=== PATIENT | male | born 1975 | race Caucasian/White ===

== ENCOUNTER → 2017-08-24 10:23 | Outpatient (CLI) | payer BC, OTHER, SELFPAY ==
[2017-08-24 13:23] LABS: Alanine Aminotransferase 110 U/L (12-78); Albumin Level 3.9 gm/dL (3.4-5.0); Albumin/Globulin Ratio 1.3 (1.1-1.8); Alkaline Phosphatase 86 U/L (46-116); Anion Gap 9.6 mEq/L (5-15); Aspartate Amino Transferase 114 U/L (15-37); Bilirubin,Total 0.3 mg/dL (0.2-1.0); Blood Urea Nitrogen 14 mg/dL (7-18); Calcium 9.3 mg/dL (8.5-10.1); Carbon Dioxide 31 mmol/L (21.0-32.0); Chloride 105 mmol/L (98-107); Chol/HDL Ratio 4.3 (1-3.5); Cholesterol 163 mg/dL (140-200); Creatinine,Serum 0.97 mg/dL (0.70-1.30); Estimated Glomerular Filt Rate 84 ml/min (>60); GFR (African American) 102 ML/MIN (>60); Globulin 3.1 gm/dl (1.3-3.2); Glucose 90 mg/dL (74-106); HDL Cholesterol 38 mg/dL (27-67); LDL Cholesterol 91 mg/dL (0-130); Potassium 4.6 mmoL/L (3.5-5.1); Sodium 141 mmol/L (136-145); Triglycerides 171 mg/dL (30-200); VLDL Cholesterol 34 mg/dL (0-40)
[2017-08-26 18:18] LABS: Vitamin D 25 Hydroxy 28.5 ng/mL (30.0-100.0)
== END ==
PROVIDERS: PCP Internal Medicine Adolescent Medicine; Visit Provider Nurse Practitioner Family
DX: E03.9 Hypothyroidism, unspecified (principal); E55.9 Vitamin D deficiency, unspecified; Z00.00 Encounter for general adult medical examination without abnormal findings
CPT/HCPCS: 36415; 80053; 80061; 82652; 84443

== ENCOUNTER → 2021-03-06 08:08 | Outpatient (CLI) | payer BC, SELFPAY ==
--- NOTE | 2021-03-06 08:18 | MR_ITS ---
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 3-D MIP and myelographic images are also rendered and reviewed FINDINGS: Normal alignment. The spinal cord ends at the T12-L1 level. L1-L2: Unremarkable. L2-L3: Unremarkable. L3-L4: Mild degenerative disc disease with bulging disc with facet and ligamentum hypertrophy with mild bilateral lateral recess narrowing and mild bilateral foraminal narrowing slightly worse compared to the previous exam.. This is slightly greater on right. Type 2 endplate changes are present with Schmorl's node in the inferior endplate of L3. Increased T1 and T2 signal involves the anterior aspect of the L3 vertebral body on the right consistent with a lipoma which is increased in size. This measures 12 mm previously measuring 10 mm. Small annular fissure is present within the bulging disc. The bulging disc is slightly larger compared to the previous exam. L4-5: Minimal bulging disc with small annular fissure. There is facet and ligamentum hypertrophy with bilateral lateral recess narrowing not significantly changed. Borderline canal stenosis. L5-S1: Small central disc protrusion with annular fissure best seen on the sagittal images. This is slightly eccentric toward the left with left lateral recess narrowing. There is facet hypertrophy with mild left foraminal narrowing. The disc protrusion appears slightly less prominent compared to the previous exam.. No extruded herniated disc. IMPRESSION: Abnormal MRI of the lumbar spine with multilevel lumbar spondylosis with degenerative disc disease, bulging discs, annular fissures,, and facet and ligamentum hypertrophy. Please see above for detailed description at each level. Dictated by: Elvin Taylor MD 03/07/2021 06:08 Elvin Taylor MD in [place] 03/07/2021 06:08
== END ==
PROVIDERS: PCP Family Medicine; Visit Provider Family Medicine
DX: M54.42 Lumbago with sciatica, left side (principal); M54.41 Lumbago with sciatica, right side; M51.36 Other intervertebral disc degeneration, lumbar region
CPT/HCPCS: 72148; 76376

== ENCOUNTER → 2021-04-04 09:51 | Outpatient (POV) | payer BC, SELFPAY ==
[2021-04-04 10:36] VITALS: BP 142/90; PULSE 77; RESP 18; O2SAT 98; BMI 34.8
--- NOTE | 2021-04-04 10:51 | HMH.PMCON ---
Assessment and Plan (1) Degenerative joint disease (DJD) of lumbar spine Status: Chronic Category: Medical Code(s): M47.816 - Spondylosis without myelopathy or radiculopathy, lumbar region (2) Lumbar radiculopathy Status: Chronic Category: Medical Code(s): M54.16 - Radiculopathy, lumbar region (3) Lumbar spondylosis Status: Chronic Category: Medical Code(s): M47.816 - Spondylosis without myelopathy or radiculopathy, lumbar region (4) Facet arthropathy Status: Chronic Category: Medical Code(s): M47.819 - Spondylosis without myelopathy or radiculopathy, site unspecified - Assessment and plan all Dx Assessment and Plan for all problems:: The patient is currently on Cymbalta prescribed by Dr. Jackson. He has tried gabapentin with no relief. We will start the patient on Lyrica 75 mg 1 tablet p.o. twice daily. He has been advised to take the medication for the next 3 to 5 days at bedtime only. If he is not experiencing any side effects he can add the morning dose on as well. Patient is having urinary incontinence with his back pain as well as paresthesia in his groin area intermittently.. We will schedule the patient for a referral back to Dr. De La Rosa. He has seen him in the past. As well, we will schedule the patient for lumbar epidural steroid injection at L3-L4 area. Per the patient's MRI report? L3-L4 with degenerative disc disease, bulging disc, facet and ligamentum hypertrophy with mild bilateral lateral recess narrowing slightly worse from previous exam. Report also notes the patient to have lipoma which has increased in size from 10 mm to 12 mm. Small annular fissure is also noted within the bulging disc . Patient is not on any anticoagulation therapy. We will plan to see him back after his injection for reevaluation of symptoms. Risks and benefits of the medication have been explained in detail to the patient. The patient has been advised to consult with his/her primary care provider and pharmacist regarding drug-drug interaction of medications currently prescribed. Possible side effects of corticosteroids have been discussed with the patient. Risks and benefits of the procedure have been explained to the patient. Patient would like to proceed with the procedure. Patient has been instructed to contact the clinic with any concerns before the next appointment. Dr. Abad has reviewed this note and agrees with this plan of care. This note was dictated using voice recognition software and make contain errors or omissions. HPI - Data of Consult Patient: new to practice Consult date: 04/04/21 Requesting Physician: Nasima Heredia APRN - Consult Narrative Reason for consult: Low back pain, bilateral leg pain History of present illness: Mr. Garrison is a 46 year old male who presents today for consultation for chronic low back and bilateral lower extremity pain. The patient was referred to us by Dr. Jackson. Patient says that he has had low back pain intermittently for the past 10 years. The pain has progressively worsened over the last year. He has seen neurosurgery?Dr. De La Rosa in the past approximately 5 years ago. The patient has pain in his bilateral low back area, bilateral groin and bilateral legs. He says the pain is usually worse in the right lower extremity with numbness and tingling, however, he is now noticing the same symptoms in the left leg. He says that he occasionally feels as though his legs are going to give out . He has taken corticosteroid Dosepak which is given him short-term relief. Unfortunately, the pain returned. He does have worsening pain with standing and walking. Patient says when his back is giving out he has had periods of urinary incontinence. He does deny bowel incontinence. The patient has tried anti-inflammatories and gabapentin with minimal relief. He is currently on Cymbalta which he says does help somewhat. He does continue to have significant numbness and tingling
== END ==
PROVIDERS: Visit Provider Clinical Nurse Specialist Family Health
DX: M47.896 Other spondylosis, lumbar region (principal); M54.16 Radiculopathy, lumbar region
CPT/HCPCS: 99202; G0463

== ENCOUNTER 2021-04-12 09:44 | Day surgery (SDC) | payer BC, SELFPAY ==
[2021-04-12 10:16] VITALS: BP 145/92; PULSE 75; RESP 18; TEMP 37; O2SAT 97; BMI 34.8
[2021-04-12 10:38] VITALS: BP 154/90; PULSE 79; RESP 18; O2SAT 95
[2021-04-12 10:39] VITALS: BP 142/80; PULSE 76; RESP 18; O2SAT 95
--- NOTE | 2021-04-12 10:45 | HMH.PMPROC ---
- Procedure Date: 04/12/21 Time: 10:45 Anesthesiologist:: Rolando Abad MD Complications:: None Pre-procedure Diagnosis:: Degenerative disc disease of lumbar spine with lumbar radiculopathy symptoms Post-procedure Diagnosis:: Same Indications for Procedure:: Patient is a pleasant 46-year-old white male who we are treating for low back pain with lumbar radiculopathy symptoms. He has some increasing pain in his back and down his legs. He has had neurosurgical consultation and he is not a surgical candidate. We will plan on a lumbar epidural steroid injection under fluoroscopy today. Procedure Details:: Informed consent was obtained and the risk and benefits of the procedure was explained to the patient. The patient was taken to the procedure room. The patient was placed prone on the procedure table. The patient was prepped and draped in sterile fashion. C-arm fluoroscopy was used to view the lumbar spine. Skin and subcutaneous tissues were anesthetized using lidocaine. I placed an 18-gauge epidural needle and advanced into the L4-L5 interspace using fluoroscopic guidance and [id number] to air. After confirmation of needle placement in the epidural space with dye I injected 2 mL of lidocaine 1.5% with Depo-Medrol 80 mg. Patient tolerated the procedure well with no complications. Plan and Disposition:: We will follow-up with him in 2 weeks. Will reevaluate symptoms at that time.
[2021-04-12 10:51] VITALS: BP 140/94; PULSE 78; RESP 20; O2SAT 96
== END 2021-04-12 10:52 | disposition home or self-care (01) ==
LOC: SC.PAINP 09:45
PROVIDERS: PCP Family Medicine; Visit Provider Anesthesiology
DX: M51.16 Intervertebral disc disorders with radiculopathy, lumbar region (principal)
CPT/HCPCS: 62323; J1040; Q9966

== ENCOUNTER → 2021-05-02 15:08 | Outpatient (POV) | payer BC, SELFPAY ==
[2021-05-02 15:12] VITALS: BP 124/76; PULSE 67; RESP 18; O2SAT 98; BMI 34.8
--- NOTE | 2021-05-02 15:24 | HMH.PAINSOAP ---
[facility] Pain Management SOAP Note Subjective:: Patient is a 46-year-old who presents today for follow-up after a lumbar epidural steroid injection, # patient reports that he got 70 to 80% relief with the injection. He says that he got relief 1 injection at L4-L5 area. To his low back and lower extremities. He is continuing to have right foot numbness. He says that he he has numbness to the heel of his sole of his foot. He is scheduled to see a neurosurgeon at [facility] on June 10. Patient does work at [employer]. He is currently on Lyrica 75 mg 1 tablet p.o. twice daily which is giving him some relief but the medication is wearing off between dosing. He denies any side effects to the medicine. He does rate his pain a 4 out of 10 today. [facility] #[id number] has been reviewed and is appropriate. Judgment have been appropriate. Morphine equivalent is 0. Patient feels that the injection worked very well for him. He does continue with home stretching and ice and heat therapies as needed. Review of Systems General: No recent weight changes, no fever, no sleep disturbances Respiratory: No cough, no shortness of air, no recurring pulmonary infections Cardiovascular/peripheral vascular: No chest pain, no palpitations, no edema, no shortness of breath Gastrointestinal: No new onset incontinence, normal bowel movements reported Genitourinary: No new onset incontinence Musculoskeletal: Low back pain with numbness and tingling to soles of feet Psychiatric: [Normal mood/affect] Neurological: [Denies weakness in extremities], [denies balance issues] Objective:: Physical exam General: Alert and oriented x3, no acute distress, pleasant and cooperative Lungs: Respirations even and unlabored, symmetrical chest expansion Eyes: PERRL Musculoskeletal: Flexion and extension of lumbar [spine] somewhat guarded secondary to pain, [antalgic gait noted] Neurological: Speech clear, no gross sensory deficit Assessment:: Degenerative disc disease lumbar spine with lumbar radiculopathy symptoms Plan:: Patient is a 46-year-old male following up after a lumbar epidural steroid injection L4-L5, #1 injection. He got significant relief with the injection, 70 to 80%. He is continuing to get relief. He is continuing, however, have numbness to the sole of his feet. He is on Lyrica 75 mg 1 tablet p.o. twice daily. This medicine is giving him significant relief, but is wearing off quickly. We will increase the patient's medicine to 75 mg 1 tablet p.o. 3 times daily. Patient would like to proceed with a repeat injection at the area L4-L5. His pain is slowly returning. The patient is not on any anticoagulation therapy. This will be his #2 injection. The patient is not diabetic. Possible side effects of corticosteroids have been discussed with the patient. Risks and benefits of the procedure have been explained to the patient. Patient would like to proceed with the procedure. Patient has been instructed to contact the clinic with any concerns before the next appointment. Dr. Abad has reviewed this note and agrees with this plan of care. This note was dictated using voice recognition software and make contain errors or omissions. [facility] History I have reviewed the patient's past medical history: Yes Medical History: Denies:: Cancer, Diabetes Mellitus Type 1, Diabetes Mellitus Type 2, Internal Pacemaker, MRSA, Seizures *Have you ever received a pneumonia vaccine?: No *Have you received a flu vaccine this season?: No Other Medical History: Denies: Blood Transfusion Reaction Other Surgeries: No: Pacemaker Amputation: No Fractures: No - *Social History Smoking Status: Never smoker Alcohol Intake: never *Occupational Status:: employed Housing: house *Travel in the last 8 weeks: None Family Hx:: No significant family history
== END ==
PROVIDERS: Visit Provider Clinical Nurse Specialist Family Health
DX: M51.16 Intervertebral disc disorders with radiculopathy, lumbar region (principal)
CPT/HCPCS: 99212; G0463

== ENCOUNTER 2021-05-31 07:48 | Day surgery (SDC) | payer BC, SELFPAY ==
[2021-05-31 07:55] VITALS: BP 143/96; PULSE 68; RESP 20; TEMP 36.3; O2SAT 98; BMI 34.8
[2021-05-31 08:53] VITALS: BP 175/90; PULSE 69; RESP 18; O2SAT 95
[2021-05-31 08:56] VITALS: PULSE 69; RESP 18; O2SAT 96
[2021-05-31 09:10] VITALS: BP 144/93; PULSE 65; RESP 20; O2SAT 96
--- NOTE | 2021-05-31 10:07 | HMH.PMPROC ---
- Procedure Date: 05/31/21 Time: 10:07 Anesthesiologist:: Rolando Abad MD Complications:: None Pre-procedure Diagnosis:: Degenerative disc disease of lumbar spine with lumbar radiculopathy symptoms Post-procedure Diagnosis:: Same Indications for Procedure:: Patient is a pleasant 46-year-old white male who we are treating for low back pain with lumbar radiculopathy symptoms. He was 70 to 80% better after his last lumbar epidural steroid injection. He is scheduled to see [facility] neurosurgery later on this month. We will plan on a repeat lumbar pleural steroid injection today to see if this helps with his pain symptoms. Procedure Details:: Informed consent was obtained and the risk and benefits of the procedure was explained to the patient. The patient was taken to the procedure room. The patient was placed prone on the procedure table. The patient was prepped and draped in sterile fashion. C-arm fluoroscopy was used to view the lumbar spine. Skin and subcutaneous tissues were anesthetized using lidocaine. I placed an 18-gauge epidural needle and advanced into the L4-L5 interspace using fluoroscopic guidance and [id number] to air. After confirmation of needle placement in the epidural space with dye I injected 2 mL of lidocaine 1.5% with Depo-Medrol 80 mg. Patient tolerated the procedure well with no complications. Plan and Disposition:: We will follow-up with him in 2 weeks. This will be after his appoint with neurosurgery. We will discuss plan of treatment after this appointment.
== END 2021-05-31 09:10 | disposition home or self-care (01) ==
LOC: SC.PAINP 07:49
PROVIDERS: PCP Family Medicine; Visit Provider Anesthesiology
DX: M51.16 Intervertebral disc disorders with radiculopathy, lumbar region (principal); M19.90 Unspecified osteoarthritis, unspecified site; E03.9 Hypothyroidism, unspecified
CPT/HCPCS: 62323; J1040; Q9966

== ENCOUNTER → 2021-06-20 10:14 | Outpatient (POV) | payer BC, SELFPAY ==
[2021-06-20 10:59] VITALS: BP 140/62; PULSE 64; RESP 18; O2SAT 95; BMI 34.8
--- NOTE | 2021-06-20 11:06 | HMH.PAINSOAP ---
[facility] Pain Management SOAP Note Subjective:: Patient is a 46-year-old white male who presents today for follow-up after lumbar epidural steroid injection. He recently saw [facility] neurosurgery and was informed that he is not likely a neurosurgical candidate. This is the patient's second lumbar epidural steroid injection. He says he got 70 to 80% relief. He does still have some occasional pain in his lower extremities. He is currently on Lyrica 75 mg 1 tablet p.o. 3 times daily. He is having significant muscle cramps in his bilateral lower extremities. Lyrica has helped with this, but he would like to increase his dosing. He says that the pain in his lower extremities does wake him at bedtime and throughout the day causes him significant pain. Today, he rates his pain a 6 out of 10 Objective:: Physical exam General: Alert and oriented x3, no acute distress, pleasant and cooperative Lungs: Respirations even and unlabored, symmetrical chest expansion Eyes: PERRL Musculoskeletal: Flexion and extension of lumbar [spine] somewhat guarded secondary to pain, [antalgic gait noted] Neurological: Speech clear, no gross sensory deficit Assessment:: Degenerative disc disease lumbar spine with lumbar radiculopathy symptoms, low back pain Plan:: The patient did get relief from his second lumbar epidural steroid injection. He would like to increase his Lyrica to see if this helps with his lower extremity pain and cramps. We will increase him to Lyrica 100 mg 1 tablet p.o. 3 times daily. He has been taking Lyrica 75 mg 1 tablet p.o. 3 times daily. We will also start him on tramadol 50 mg 1 tablet p.o. 3 times daily to see if this relieves his pain. If it does not, he has been advised to stop the medication. We will follow-up with him in a month to see if the medication has given him any relief. If he does not get relief, Requip may be an option to take prior to bedtime. Risks and benefits of the medication have been explained in detail to the patient. The patient does understand the risk of dependence on the medication when given over a prolonged period. Patient has been advised of risks of oversedation with the prescribed medication. Narcan has been offered to the paitent in the event of oversedation. Patient has been advised that a family member should also be educated regarding administration of Narcan. The patient has been advised to consult with his/her primary care provider and pharmacist regarding drug-drug interaction of medications currently prescribed. Patient has been prescribed a controlled substance after being counseled on the medication, medication safety, and possible side effects. DAVE report has been obtained and reviewed prior to prescription and found to be appropriate. Opioid contract was reviewed and signed by the patient, and that they have agreed to all of the terms set forth by our compliance program. Patient has been instructed to contact the clinic with any concerns before the next appointment. Dr. Abad has reviewed this note and agrees with this plan of care. This note was dictated using voice recognition software and make contain errors or omissions. [facility] History I have reviewed the patient's past medical history: Yes Medical History: Denies:: Cancer, Diabetes Mellitus Type 1, Diabetes Mellitus Type 2, Internal Pacemaker, MRSA, Seizures *Have you ever received a pneumonia vaccine?: No *Have you received a flu vaccine this season?: No Other Medical History: Reports: Arthritis, Hypothyroidism. Denies: Blood Transfusion Reaction Other Surgeries: Yes: No Previous Surgery. No: Pacemaker Amputation: No Fractures: No - *Social History Smoking Status: Never smoker Alcohol Intake: never *Occupational Status:: employed Housing: house Household Members: other *Travel in the last 8 weeks: None Family Hx:: No significant family history
== END ==
PROVIDERS: Visit Provider Clinical Nurse Specialist Family Health
DX: M51.16 Intervertebral disc disorders with radiculopathy, lumbar region (principal)
CPT/HCPCS: 99212; G0463

== ENCOUNTER → 2021-07-22 09:40 | Outpatient (POV) | payer BC, SELFPAY ==
[2021-07-22 09:55] VITALS: BP 151/92; PULSE 72; RESP 18; O2SAT 98; BMI 34.8
--- NOTE | 2021-07-22 10:15 | HMH.PAINSOAP ---
[facility] Pain Management SOAP Note Subjective:: Patient is a pleasant 46 year old male who comes in here for follow-up. Patient is currently being treated for degenerative disc disease of the lumbar spine with lumbar radiculopathy symptoms. Patient states his pain starts in his low back that radiates to bilateral legs with numbness and paresthesia. From his MRI in February 2021, patient has multilevel lumbar spondylosis, degenerative disc disease, bulging discs, annular fissures, and facet and ligamentum hypertrophy. 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 Patient has seen neurosurgery in the past and was told that he is not a surgical candidate. He is currently taking lyrica 100mg three times a day. We started him on tramadol last time, but this did not help the patient. He states that he got more relief from alleve. Patient has also had two lumbar epidural steroid injections in the past which provided him 80-90% relief that lasted for about 1-1.5 months. He rates his pain today as 3/10. His sy is [id number] with a morphine equivalent of 0. Drug screens have been reviewed and appropriate. ORT score is 0, low risk. General: No recent weight changes, no fever, no sleep disturbances Respiratory: No cough, no shortness of air, no recurring pulmonary infections Cardiovascular/peripheral vascular: No chest pain, no palpitations, no edema, no shortness of breath Gastrointestinal: No new onset incontinence, normal bowel movements reported Genitourinary: No new onset incontinence Musculoskeletal: [low back pain] Psychiatric: [Normal mood/affect] Neurological: [Denies weakness in extremities], [denies balance issues] Objective:: General: Alert and oriented x3, no acute distress, pleasant and cooperative, [on room air] Lungs: Respirations even and unlabored, symmetrical chest expansion Eyes: PERRL Musculoskeletal: Flexion and extension of [lumbar] [spine] somewhat guarded secondary to pain Neurological: Speech clear, no gross sensory deficit Assessment:: Degenerative Disc Disease of the Lumbar spine with lumbar radiculopathy Spondylosis Disc Bulging Facet and Ligamentum Hypertrophy Plan:: Ordering Physician: Abiel Jackson MD Date of Service: 03/06/21 Procedure(s): MR lumbar spine wo con Accession Number(s): [id number] cc: Elvin Taylor MD; Abiel Jackson MD~ PROCEDURE: MR LUMBAR SPINE WO CON CLINICAL INDICATION: LBP Low back pain left leg COMPARISON: 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 3-D MIP and myelographic images are also rendered and reviewed FINDINGS: Normal alignment. The spinal cord ends at the T12-L1 level. L1-L2: Unremarkable. L2-L3: Unremarkable. L3-L4: Mild degenerative disc disease with bulging disc with facet and ligamentum hypertrophy with mild bilateral lateral recess narrowing and mild bilateral foraminal narrowing slightly worse compared to the previous exam.. This is slightly greater on right. Type 2 endplate changes are present with Schmorl's node in the inferior endplate of L3. Increased T1 and T2 signal involves the anterior aspect of the L3 vertebral body on the right consistent with a lipoma which is increased in size. This measures 12 mm previously measuring 10 mm. Small annular fissure is present within the bulging disc. The bulging disc is slightly larger compared to the previous exam. L4-5: Minimal bulging disc with small annular fissure. There is facet and ligamentum hypertrophy with bilateral lateral recess narrowing not significantly changed. Borderline canal stenosis. L5-S1: Small central disc protrusion with annular fissure best seen on the sagittal images. This is slightly eccentric toward the left with left lateral recess narrowing. There is facet hypertrophy with mild left foraminal narrowing. The di
--- NOTE | 2021-07-23 08:03 | HMH.PAINSOAP ---
[facility] Pain Management SOAP Note Subjective:: Patient is a pleasant 46 year old male who comes in here for follow-up. Patient is currently being treated for degenerative disc disease of the lumbar spine with lumbar radiculopathy symptoms. Patient states his pain starts in his low back that radiates to bilateral legs with numbness and paresthesia. From his MRI in February 2021, patient has multilevel lumbar spondylosis, degenerative disc disease, bulging discs, annular fissures, and facet and ligamentum hypertrophy. 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 Patient has seen neurosurgery in the past and was told that he is not a surgical candidate. He is currently taking lyrica 100mg three times a day. We started him on tramadol last time, but this did not help the patient. He states that he got more relief from alleve. Patient has also had two lumbar epidural steroid injections in the past which provided him 80-90% relief that lasted for about 1-1.5 months. He rates his pain today as 3/10. His sy is [id number] with a morphine equivalent of 0. Drug screens have been reviewed and appropriate. ORT score is 0, low risk. General: No recent weight changes, no fever, no sleep disturbances Respiratory: No cough, no shortness of air, no recurring pulmonary infections Cardiovascular/peripheral vascular: No chest pain, no palpitations, no edema, no shortness of breath Gastrointestinal: No new onset incontinence, normal bowel movements reported Genitourinary: No new onset incontinence Musculoskeletal: [low back pain] Psychiatric: [Normal mood/affect] Neurological: [Denies weakness in extremities], [denies balance issues] Objective:: Objective:: Physical exam General: Alert and oriented x3, no acute distress, pleasant and cooperative Lungs: Respirations even and unlabored, symmetrical chest expansion Eyes: PERRL Musculoskeletal: Flexion and extension of lumbar [spine] somewhat guarded secondary to pain, [antalgic gait noted] Neurological: Speech clear, no gross sensory deficit Assessment:: Degenerative Disc Disease of the Lumbar spine with lumbar radiculopathy Spondylosis Disc Bulging Facet and Ligamentum Hypertrophy Plan:: Patient has tried and failed conservative therapy such as oral medications, physical therapy, and at home exercises for greater than 6 weeks in the past. Patient has had two lumbar epidural steroid injections that provided 80-90% relief that only lasted for 1-1.5months. Patient is currently not a surgical candidate according the neurosurgery. I discussed with the patient that he is a good candidate for a spinal cord stimulator. Currently, the patient is hesitant to get the procedure because he feels like he cannot be off work for 6 weeks. He currently works at [employer]. We will schedule the patient for another lumbar epidural steroid injection and will discuss the spinal cord stimulator route at his procedure date. We will not refill his tramadol since he did not get much relief from it. He is having leg discomfort at bedtime causing difficulty sleeping. We will start the patient on Requip 0.25 mg po at bedtime. Patient has been instructed to contact the clinic with any concerns before the next appointment. Dr. Abad has reviewed this note and agrees with this plan of care. This note was dictated using voice recognition software and make contain errors or omissions. [facility] History I have reviewed the patient's past medical history: Yes Medical History: Denies:: Cancer, Diabetes Mellitus Type 1, Diabetes Mellitus Type 2, Internal Pacemaker, MRSA, Seizures *Have you ever received a pneumonia vaccine?: No *Have you received a flu vaccine this season?: No Other Medical History: Reports: Arthritis, Hypothyroidism. Denies: Blood Transfusion Reaction Other Surgeries: Yes: No Previous Surgery. No: Pacemaker Amputation: No Fractures: No - *Social History Maryanne
== END ==
PROVIDERS: Visit Provider Clinical Nurse Specialist Family Health
DX: M51.16 Intervertebral disc disorders with radiculopathy, lumbar region (principal); M47.896 Other spondylosis, lumbar region
CPT/HCPCS: 99212; G0463

== ENCOUNTER → 2021-08-01 14:33 | Outpatient (POV) | payer BC, SELFPAY ==
[2021-08-01 14:47] VITALS: BP 145/91; PULSE 80; RESP 18; O2SAT 96; BMI 34.8
--- NOTE | 2021-08-01 15:14 | HMH.PAINSOAP ---
[facility] Pain Management SOAP Note Subjective:: Patient is a 46-year-old white male who presents today for medication refills. The patient does have continued chronic low back pain that radiates into bilateral lower extremities. He has had 2 lumbar epidural steroid injections and did get up to a month to a month and a half of relief. He has seen neurosurgery who did not feel the patient was a surgical candidate. He is continuing to work and is continuing to have significant pain. He is currently on Lyrica 100 mg 1 tablet p.o. 3 times daily. Tramadol has not given him any relief. He is taking high doses of Tylenol with arthritis to get relief. Today, he rates his pain a 5 or 6 out of 10. Pain is made worse with standing walking and bending. Review of Systems General: No recent weight changes, no fever, no sleep disturbances Respiratory: No cough, no shortness of air, no recurring pulmonary infections Cardiovascular/peripheral vascular: No chest pain, no palpitations, no edema, no shortness of breath Gastrointestinal: No new onset incontinence, normal bowel movements reported Genitourinary: No new onset incontinence Musculoskeletal: Low back pain with radiation into bilateral lower extremities Psychiatric: [Normal mood/affect] Neurological: [Denies weakness in extremities], [denies balance issues] Objective:: Physical exam General: Alert and oriented x3, no acute distress, pleasant and cooperative Lungs: Respirations even and unlabored, symmetrical chest expansion Eyes: PERRL Musculoskeletal: Flexion and extension of lumbar [spine] somewhat guarded secondary to pain, [antalgic gait noted] Neurological: Speech clear, no gross sensory deficit Assessment:: Degenerative disc disease lumbar spine with lumbar radiculopathy symptoms, Plan:: We will start the patient on [place] 5 mg 1 tablet p.o. twice daily. The patient is continuing to work and is continue with injective therapy. We will also continue him with home stretching. He is taking Tylenol and has been advised to decrease his Tylenol intake with [place]. We will also continue the patient's Lyrica 100 mg 1 tablet p.o. 3 times daily. We will give him 5 days of prednisone 20 mg 1 tablet p.o. twice daily. We will see him back in the clinic in 1 month. Risks and benefits of the medication have been explained in detail to the patient. The patient does understand the risk of dependence on the medication when given over a prolonged period. Patient has been advised of risks of oversedation with the prescribed medication. Narcan has been offered to the paitent in the event of oversedation. Patient has been advised that a family member should also be educated regarding administration of Narcan. The patient has been advised to consult with his/her primary care provider and pharmacist regarding drug-drug interaction of medications currently prescribed. Patient has been prescribed a controlled substance after being counseled on the medication, medication safety, and possible side effects. DAVE report has been obtained and reviewed prior to prescription and found to be appropriate. Opioid contract was reviewed and signed by the patient, and that they have agreed to all of the terms set forth by our compliance program. Patient has been instructed to contact the clinic with any concerns before the next appointment. Dr. Abad has reviewed this note and agrees with this plan of care. This note was dictated using voice recognition software and make contain errors or omissions. [facility] History I have reviewed the patient's past medical history: Yes Medical History: Denies:: Cancer, Diabetes Mellitus Type 1, Diabetes Mellitus Type 2, Internal Pacemaker, MRSA, Seizures *Have you ever received a pneumonia vaccine?: No *Have you received a flu vaccine this season?: No Other Medical History: Reports: Arthritis, Hypothyroidism. Denies: Blood Transfusion Reaction Other Surgeries: Ye
== END ==
PROVIDERS: Visit Provider Clinical Nurse Specialist Family Health
DX: M51.16 Intervertebral disc disorders with radiculopathy, lumbar region (principal)
CPT/HCPCS: 99212; G0463

== ENCOUNTER 2021-09-20 12:40 | Day surgery (SDC) | payer BC, SELFPAY ==
[2021-09-20 12:55] VITALS: BP 129/85; BP 150/52; PULSE 67; PULSE 75; RESP 17; RESP 18; TEMP 36.7; O2SAT 97; BMI 34.8
[2021-09-20 13:10] VITALS: BP 152/58; PULSE 77; RESP 20; O2SAT 97
--- NOTE | 2021-09-20 13:18 | HMH.PMPROC ---
- Procedure Date: 09/20/21 Time: 13:18 Anesthesiologist:: Rolando Abad MD Complications:: None Pre-procedure Diagnosis:: Degenerative disc disease of lumbar spine with lumbar radiculopathy symptoms Post-procedure Diagnosis:: Same Indications for Procedure:: Patient is a pleasant 46-year-old white male who we are treating for low back pain with lumbar radiculopathy symptoms. He has increasing pain in his low back radiating down both legs. He has done well with previous epidural steroid injections in the past. We will plan on repeat lumbar pleural steroid injection under fluoroscopy today to help with pain symptoms. Procedure Details:: Informed consent was obtained and the risk and benefits of the procedure was explained to the patient. The patient was taken to the procedure room. The patient was placed prone on the procedure table. The patient was prepped and draped in sterile fashion. C-arm fluoroscopy was used to view the lumbar spine. Skin and subcutaneous tissues were anesthetized using lidocaine. I placed an 18-gauge epidural needle and advanced into the L4-L5 interspace using fluoroscopic guidance and [id number] to air. After confirmation of needle placement in the epidural space with dye I injected 2 mL of lidocaine 1.5% with Depo-Medrol 80 mg. Patient tolerated the procedure well with no complications. Plan and Disposition:: We will follow-up with him in 2 weeks. Will reevaluate his symptoms at that time.
[2021-09-20 13:19] VITALS: BP 127/94; PULSE 53; O2SAT 91
== END 2021-09-20 13:19 | disposition home or self-care (01) ==
LOC: SC.PAINP 12:42
PROVIDERS: PCP Family Medicine; Visit Provider Anesthesiology
DX: M51.16 Intervertebral disc disorders with radiculopathy, lumbar region (principal); M19.90 Unspecified osteoarthritis, unspecified site; E03.9 Hypothyroidism, unspecified; F41.9 Anxiety disorder, unspecified
CPT/HCPCS: 62323; J1040; Q9966

== ENCOUNTER → 2021-11-07 09:39 | Outpatient (POV) | payer BC, SELFPAY ==
[2021-11-07 09:53] VITALS: BP 131/92; PULSE 78; RESP 18; TEMP 36.3; O2SAT 99; BMI 34.8
--- NOTE | 2021-11-07 12:26 | P.CONS_ITS ---
[facility] Pain Management SOAP Note Subjective:: Patient is a pleasant 46-year-old male who is here for a follow up after lumbar epidural steroid injection at L4-L5 #3 on September 21, 2019. Patient is currently being treated for degenerative disc disease of lumbar spine with lumbar radiculopathy symptoms. After the procedure, patients reports significant relief of 80 to 90% and rates pain today at 4 out of 10. Patient denies any issues after the procedure. Patient has been able to increase his activity since injection. This is the patient's third epidural steroid injection. He also takes [place] 5 mg twice a day as needed. He does not need any refills today. [facility] number [id number] with an active morphine equivalent 0. Drug screens have been reviewed and appropriate. Review of Systems: General: No recent weight changes, no fever, no sleep disturbances Respiratory: No cough, no shortness of air, no recurring pulmonary infections Cardiovascular/peripheral vascular: No chest pain, no palpitations, no edema, no shortness of breath Gastrointestinal: No new onset incontinence, normal bowel movements reported Genitourinary: No new onset incontinence Musculoskeletal: Low back pain Psychiatric: [Normal mood/affect] Neurological: [Denies weakness in extremities], [denies balance issues] Objective:: Physical Exam: General: Alert and oriented x3, no acute distress, pleasant and cooperative, [on room air] Lungs: Respirations even and unlabored, symmetrical chest expansion Eyes: PERRL Musculoskeletal: Flexion and extension of lumbar [spine] somewhat guarded secondary to pain, [antalgic gait noted] Neurological: Speech clear, no gross sensory deficit Assessment:: Degenerative disc disease of lumbar spine with lumbar radiculopathy symptoms Plan:: Patient continues to have relief after the lumbar epidural steroid injection. I discussed with the patient that these injections are providing him temporary relief, he would be a good candidate for spinal cord stimulator or intrathecal pain pump therapy. At the moment, patient is not interested in any implants. He wants to continue doing injective therapy every 3 to 4 months. The oral medication is still helping him. He continues to do at home exercises is providing relief. Overall, patient is doing well and stable with his treatment. Follow-up in 2 months. Patient has been instructed to contact the clinic with any concerns before the next appointment. Dr. Abad has reviewed this note and agrees with this plan of care. This note was dictated using voice recognition software and make contain errors or omissions. [facility] History Medical History: Denies:: Cancer, Diabetes Mellitus Type 1, Diabetes Mellitus Type 2, Internal Pacemaker, MRSA, Seizures *Have you ever received a pneumonia vaccine?: No *Have you received a flu vaccine this season?: No Other Medical History: Reports: Arthritis, Hypothyroidism. Denies: Blood Transfusion Reaction Other Surgeries: Yes: No Previous Surgery. No: Pacemaker Amputation: No Fractures: No - *Social History Smoking Status: Never smoker Alcohol Intake: never *Occupational Status:: employed Housing: house Household Members: other *Travel in the last 8 weeks: None Family Hx:: No significant family history
== END ==
PROVIDERS: Visit Provider Student in an Organized Health Care Education/Training Program
DX: M51.16 Intervertebral disc disorders with radiculopathy, lumbar region (principal)
CPT/HCPCS: 99212; G0463

== ENCOUNTER → 2022-01-06 09:07 | Outpatient (POV) | payer BC, SELFPAY ==
[2022-01-06 09:38] VITALS: BP 145/90; PULSE 74; RESP 20; TEMP 36.9; O2SAT 96; BMI 36.2
--- NOTE | 2022-01-06 10:02 | HMH.PAINSOAP ---
[facility] Pain Management SOAP Note Subjective:: Patient is a pleasant 46-year-old white male who is here for medication refill and follow-up. Patient is currently being treated for degenerative disc disease of lumbar spine with lumbar radiculopathy symptoms. Patient is being managed with pregabalin 100 mg 3 times daily, tramadol 50 mg, and [place] 325 mg / 5 mg twice daily. Patient denies any side effects from the medications. Patient denies any changes to the location and type of pain. Patient states that this is adequately helping manage their pain. Rates pain as 7 out of 10. We will refill the pregabalin and tramadol today. [facility] number [id number] with an active morphine equivalent 0. Drug screens have been reviewed and appropriate. We have been managing the patient's lumbar pain with epidural steroids in the past at L4-L5. He typically gets about 80 to 90% of improvement after each injection. Patient states he has had increased improvement of his pain and increased activity since injections. Today he has had increased low back pain so we will schedule him for a repeat lumbar epidural steroid injection at L4-L5. Review of Systems: General: No recent weight changes, no fever, no sleep disturbances Respiratory: No cough, no shortness of air, no recurring pulmonary infections Cardiovascular/peripheral vascular: No chest pain, no palpitations, no edema, no shortness of breath Gastrointestinal: No new onset incontinence, normal bowel movements reported Genitourinary: No new onset incontinence Musculoskeletal: Lumbar Psychiatric: [Normal mood/affect] Neurological: [Denies weakness in extremities], [denies balance issues] Objective:: Physical Exam: General: Alert and oriented x3, no acute distress, pleasant and cooperative Lungs: Respirations even and unlabored, symmetrical chest expansion Eyes: PERRL Musculoskeletal: Flexion and extension of lumbar [spine] somewhat guarded secondary to pain, [antalgic gait noted] Neurological: Speech clear, no gross sensory deficit Assessment:: Degenerative disc disease of lumbar spine with lumbar radiculopathy symptoms. Plan:: We will continue the patient's pregabalin 100 mg 3 times a day, and tramadol 50 mg twice a day. We will provide the patient with 0 of refills. We would like to see the patient back in 1 month for follow-up and reevaluation of chronic pain syndrome. We will schedule the patient for a lumbar epidural steroid injection at L4-L5. Patient is not on any blood thinners. Patient has been advised of risks of oversedation with the prescribed medication. Narcan has been offered to the patient in the event of oversedation. Patient has been advised that a family member should also be educated regarding administration of Narcan. Patient has been instructed to contact the clinic with any concerns before the next appointment. Dr. Abad has reviewed this note and agrees with this plan of care. This note was dictated using voice recognition software and make contain errors or omissions. [facility] History I have reviewed the patient's past medical history: Yes Medical History: Denies:: Cancer, Diabetes Mellitus Type 1, Diabetes Mellitus Type 2, Internal Pacemaker, MRSA, Seizures *Have you ever received a pneumonia vaccine?: No *Have you received a flu vaccine this season?: No Other Medical History: Reports: Arthritis, Hypothyroidism. Denies: Blood Transfusion Reaction Other Surgeries: Yes: No Previous Surgery. No: Pacemaker Amputation: No Fractures: No - *Social History Smoking Status: Never smoker Alcohol Intake: never *Occupational Status:: employed Housing: house Household Members: other *Travel in the last 8 weeks: None Family Hx:: No significant family history
[2022-01-06 10:51] LABS: Amphetamine/Metha Screen,Urine Negative ng/ml (<1000); Benzodiazepines Screen,Urine Negative ng/ml (<200)
[2022-01-06 10:52] LABS: Barbiturates Screen,Urine Negative ng/ml (<200)
[2022-01-06 10:53] LABS: Cannabinoid Screen,Urine Negative ng/ml (<50); Methadone Screen,Urine Negative ng/ml (<300)
[2022-01-06 10:54] LABS: Cocaine Screen,Urine Negative ng/ml (<300); Opiate Screen,Urine Negative ng/ml (<300)
[2022-01-06 10:55] LABS: Phencyclidine Screen,Urine Negative ng/ml (<25)
[2022-01-13 10:16] LABS: Opiates Negative (Cutoff=100)
== END ==
PROVIDERS: Visit Provider Student in an Organized Health Care Education/Training Program
DX: M51.16 Intervertebral disc disorders with radiculopathy, lumbar region (principal); Z79.891 Long term (current) use of opiate analgesic
CPT/HCPCS: 80305; 80361; 80365; 99212; G0463; G0480

== ENCOUNTER → 2022-01-10 16:06 | Outpatient (CLI) | payer BC, SELFPAY ==
--- NOTE | 2022-01-10 16:12 | XR_ITS ---
PROCEDURE INFORMATION: Exam: XR Left Shoulder Exam date and time: 01/10/2022 4:18 PM Age: 46 years old Clinical indication: Pain; Shoulder; Left; Additional info: Disorder of neck and acute pain of left shoulder TECHNIQUE: Imaging protocol: Radiologic exam of the Left shoulder. Views: 2 or more views. COMPARISON: No relevant prior studies available. FINDINGS: Bones/joints: Degenerative changes in the acromioclavicular joint and glenohumeral joint. There is no evidence of acute fracture.There is no evidence of malalignment or dislocation. Soft tissues: Normal. IMPRESSION: There is no evidence of acute fracture.There is no evidence of malalignment or dislocation.
--- NOTE | 2022-01-10 16:12 | XR_ITS ---
PROCEDURE INFORMATION: Exam: XR Cervical Spine Exam date and time: 01/10/2022 4:18 PM Age: 46 years old Clinical indication: Neck pain TECHNIQUE: Imaging protocol: Radiologic exam of the cervical spine. Views: 4 or 5 views. COMPARISON: No relevant prior studies available. FINDINGS: Bones/joints: No acute fracture of the cervical spine. No subluxation or dislocation of the cervical spine. Intervertebral disc space narrowing C3/C4 and C5 through C7 may represent degenerative disc disease.. Anterior osteophyte formation C5/C6. Posterior osteophyte formation C5 through C7. Degenerative changes in the facets at multiple levels. Degenerative changes at C1/C2 Soft tissues: Unremarkable. IMPRESSION: 1. No acute fracture of the cervical spine. 2. No subluxation or dislocation of the cervical spine. 3. Intervertebral disc space narrowing C3/C4 and C5 through C7 may represent degenerative disc disease..
== END ==
PROVIDERS: PCP Family Medicine; Visit Provider Family Medicine
DX: M53.82 Other specified dorsopathies, cervical region (principal); M25.512 Pain in left shoulder
CPT/HCPCS: 72050; 73030

== ENCOUNTER 2022-01-17 11:08 | Day surgery (SDC) | payer BC, SELFPAY ==
[2022-01-17 11:40] VITALS: BP 159/93; PULSE 75; RESP 18; TEMP 36.6; O2SAT 95; BMI 30.1
[2022-01-17 11:46] VITALS: BP 145/89; PULSE 64; RESP 20; O2SAT 96
[2022-01-17 12:39] VITALS: BP 140/74; PULSE 69; RESP 18; O2SAT 98
[2022-01-17 12:41] VITALS: BP 135/74; PULSE 69; RESP 18; O2SAT 98
--- NOTE | 2022-01-17 12:46 | P.PCN_ITS ---
- Procedure Date: 01/17/22 Time: 12:46 Anesthesiologist:: Rolando Abad MD Complications:: None Pre-procedure Diagnosis:: Degenerative disc disease of lumbar spine with lumbar radiculopathy symptoms Post-procedure Diagnosis:: Same Indications for Procedure:: Patient is a pleasant 46-year-old white male who we are treating for low back pain with lumbar radiculopathy symptoms. He usually does very well with these injections. Most of his pain is in the back rating down the right leg. We will plan on lumbar epidural steroid injection under fluoroscopy today to help with his pain symptoms that are starting to return. Usually gets 80 to 90% relief for several weeks. Procedure Details:: Informed consent was obtained and the risk and benefits of the procedure was explained to the patient. The patient was taken to the procedure room. The patient was placed prone on the procedure table. The patient was prepped and draped in sterile fashion. C-arm fluoroscopy was used to view the lumbar spine. Skin and subcutaneous tissues were anesthetized using lidocaine. I placed an 18-gauge epidural needle and advanced into the L4-L5 interspace using fluorosc opic guidance and [id number] to air. After confirmation of needle placement in the epidural space with dye I injected 2 mL of lidocaine 1.5% with Depo-Medrol 80 mg. Patient tolerated the procedure well with no complications. Plan and Disposition:: We will follow-up with him in 2 weeks. Will reevaluate symptoms at that time.
== END 2022-01-17 12:46 | disposition home or self-care (01) ==
LOC: SC.PAINP 11:11
PROVIDERS: PCP Family Medicine; Visit Provider Anesthesiology
DX: M51.16 Intervertebral disc disorders with radiculopathy, lumbar region (principal)
CPT/HCPCS: 62323; J1040; Q9966

== ENCOUNTER → 2022-02-06 14:24 | Outpatient (POV) | payer BC, SELFPAY ==
--- NOTE | 2022-02-06 14:49 | P.CONS_ITS ---
[facility] Pain Management SOAP Note Subjective:: Patient is a pleasant 47-year-old male who is here for medication refill and follow-up. Patient is currently being treated for degenerative disc disease of lumbar spine with lumbar radiculopathy symptoms. Patient is being managed with Lyrica 100 mg 3 times daily, tramadol 50 mg twice a day. Patient denies any side effects from the medications. Patient denies any changes to the location and type of pain. Patient states that this is adequately helping manage their pain. Rates pain as 4 out of. [facility] number [phone] with an active morphine equivalent 15. Drug screens have been reviewed and appropriate. Patient was also prescribed [place] 5 mg twice a day as needed. He continues to work at [employer]. We also manage this patient with injective therapy. He recently got a LESI but only had minimal relief. He has been off for two weeks due to LBP. Review of Systems: General: No recent weight changes, no fever, no sleep disturbances Respiratory: No cough, no shortness of air, no recurring pulmonary infections Cardiovascular/peripheral vascular: No chest pain, no palpitations, no edema, no shortness of breath Gastrointestinal: No new onset incontinence, normal bowel movements reported Genitourinary: No new onset incontinence Musculoskeletal: Low back pain Psychiatric: [Normal mood/affect] Neurological: [Denies weakness in extremities], [denies balance issues] Objective:: Physical Exam: General: Alert and oriented x3, no acute distress, pleasant and cooperative Lungs: Respirations even and unlabored, symmetrical chest expansion Eyes: PERRL Musculoskeletal: Flexion and extension of lumbar [spine] somewhat guarded secondary to pain, [antalgic gait noted] Neurological: Speech clear, no gross sensory deficit Assessment:: Degenerative disease of lumbar spine with lumbar radiculopathy symptoms Plan:: We will continue the patient's Lyrica 100 mg 3 times a day and tramadol 50 mg 3 times a day. We will provide the patient with 3 months of refills. We would like to see the patient back in 3 months for follow-up and reevaluation of chronic pain syndrome. We will discontinue his [place] at this time. He has not had any [place] prescriptions since November 2021. Patient has been advised of risks of oversedation with the prescribed medication. Narcan has been offered to the patient in the event of oversedation. Patient has been advised that a family member should also be educated regarding administration of Narcan. Patient has been instructed to contact the clinic with any concerns before the next appointment. Dr. Abad has reviewed this note and agrees with this plan of care. This note was dictated using voice recognition software and make contain errors or omissions. [facility] History Medical History: Denies:: Cancer, Diabetes Mellitus Type 1, Diabetes Mellitus Type 2, Internal Pacemaker, MRSA, Seizures *Have you ever received a pneumonia vaccine?: No *Have you received a flu vaccine this season?: No Other Medical History: Reports: Arthritis, Hypothyroidism. Denies: Blood Transfusion Reaction Other Surgeries: Yes: No Previous Surgery. No: Pacemaker Amputation: No Fractures: No - *Social History Smoking Status: Never smoker Alcohol Intake: never *Occupational Status:: employed Housing: house Household Members: other *Travel in the last 8 weeks: [place] the [place] Family Hx:: No significant family history
[2022-02-06 14:51] VITALS: BP 161/99; PULSE 74; RESP 20; TEMP 36.8; O2SAT 96; BMI 36.2
== END ==
PROVIDERS: Visit Provider Student in an Organized Health Care Education/Training Program
DX: M51.16 Intervertebral disc disorders with radiculopathy, lumbar region (principal)
CPT/HCPCS: 99212; G0463

== ENCOUNTER 2022-02-10 09:40 | Emergency (ER) | payer BC, SELFPAY ==
[2022-02-10 09:45] VITALS: BP 136/92; PULSE 76; RESP 18; TEMP 36.7; O2SAT 96; BMI 36.2
--- NOTE | 2022-02-10 10:04 | HMH.EDUTC ---
[facility] Disposition Clinical Impression: Encounter for laboratory testing for COVID-19 virus Disposition: Home, Self-Care Condition on Discharge: Good Instructions: DI for COVID-19 (Suspected or Confirmed ), Preventing the Spread of Coronavirus Discharge Instructions Additional Instructions: *Monitor Temp, Over the counter Motrin or Tylenol as directed/as needed Tylenol every 4 hours and Motrin every 6 hours (as long as your family doctor has told you that you can take it) for fever or pain. and straight to ER if unable to lower temp less than 101.0 after medication given *Warm salt water gargles may help to soothe the throat *Throat Lozenges *Warm fluids like tea with honey may help to soothe the throat *Sleep elevated *Humidifier/Vaporizer Follow up IMMEDIATELY for new or worsening symptoms or no Noticeable improvement over the next 48-72 hours. 911 for difficulty breathing or swallowing You were tested for today for COVID19 your test result should be back in the next 24-48 hours, you may check your results on the [facility] My Health Portal Make sure to take your Vitamins Vit. C Vit D and Zinc if you can take them Referrals: Abiel Jackson MD [Primary Care Provider] - As needed Forms: Work/School Release Medical Decision Making - Paul Inquiry Pt receiving controlled substance: No Paul was queried for this patient: No Vital Signs: 02/10/22 09:45 Temperature 98.1 F Temperature Source Oral Pulse Rate [Right Brachial] 76 Respiratory Rate 18 Blood Pressure [Right Arm] 136/92 H Blood Pressure Mean [Right Arm] 106 Blood Pressure Source [Right Arm] Automatic Cuff Blood Pressure Position [Right Arm] Sitting 02 Sat by Pulse Oximetry 96 Oxygen Delivery Method Room Air Orders (Tests/Meds): ORDERS Category Date Time Status Covid-19 Nasal PCR ([facility]) Routine Lab 02/10/22 09:49 Received [facility] HPI - General Stated complaint: covid test Time Seen by Provider: 02/10/22 09:50 Mode of Arrival: Ambulatory Source of Information: Patient Limitations: No Limitations Description of Symptoms (Recalled from Triage Doc. by RN): PATIENT C/O CHILLS AND BODY ACHES. REPORTS A POSITIVE AT HOME COVID TEST, BUT NEEDS A PCR FOR WORK HEENT Symptoms (Recalled from RN notes): No Resp Symptoms (Recalled from RN notes): No Skin Symptoms (Recalled from RN notes): No MS Symptoms (Recalled from RN notes): No Functional Status (Recalled from RN notes): WNL - History of Present Illness Provider Complaint: Patient states that he has been having nasal congestion chills and body aches this weekend State that he did a home COVID test and it was positive States that he needed to come in and get tested for work - Related Data Home Medications Medication Instructions Recorded Confirmed Duloxetine HCl [Drizalma Sprinkle] 60 mg PO DAILY 05/31/21 02/06/22 Levothyroxine Sodium 200 mcg PO DAILY 05/31/21 02/06/22 [Levothyroxine 200mcg (0.2mg) Tab] Hydrocodone/Acetaminophen 1 tab PO BID 01/06/22 02/06/22 [Hydrocodone-Acetamin 5-325 mg] Ropinirole HCl 0.25 mg PO HS 02/06/22 02/06/22 Previous Rx's Medication Instructions Recorded Pregabalin [Lyrica 100mg Cap] 100 mg PO TID #90 cap 02/06/22 Tramadol HCl [Tramadol 50mg 50 mg PO TID #90 tab 02/06/22 Tab] Allergies Allergy/AdvReac Type Severity Reaction Status Date / Time No Known Allergies Allergy Verified 01/17/22 11:41 - Worker's Comp Is this a Worker's Comp case?: No [facility] History - Hepatitis A Screen Attestation statement:: This patient has been screened for Hepatitis A risk factors. I have reviewed the patient's past medical history: Yes Medical History: Denies:: Cancer, Diabetes Mellitus Type 1, Diabetes Mellitus Type 2, Internal Pacemaker, MRSA, Seizures Other Medical History: Reports: Arthritis, Hypothyroidism. Denies: Blood Transfusion Reaction Other Surgeries: Yes: No Previous Surgery. No: Pacemaker Amputation: No Fractures: No - Social
[2022-02-10 10:06] VITALS: BP 136/92; PULSE 76; RESP 18; TEMP 36.7; O2SAT 96
== END 2022-02-10 10:10 | disposition home or self-care (01) ==
PROVIDERS: Emergency Provider Nurse Practitioner; PCP Family Medicine
DX: U07.1 COVID-19 (principal)
CPT/HCPCS: 99212; C9803; G0463; U0003; U0005

== ENCOUNTER → 2022-05-08 14:27 | Outpatient (POV) | payer BC, SELFPAY ==
[2022-05-08 14:35] VITALS: BP 135/86; PULSE 74; RESP 18; TEMP 36.6; O2SAT 99; BMI 33.9
--- NOTE | 2022-05-08 14:35 | EXP.PAIN.SOA ---
[facility] Pain Management SOAP Note Subjective:: Patient is a pleasant 47-year-old male who presents today for medication refill and follow-up. We are currently treating the patient for degenerative disc disease of lumbar spine with lumbar radiculopathy symptoms. Today the patient rates his pain a 6 out of 10. He states the pain is in his low back that radiates into bilateral lower extremities as well as having some neck pains. Patient states that he recently had some x-rays of his cervical spine and stated it did show degenerative disc disease multilevel. Patient denies any new trauma or injury. Patient did state that he has been feeling better with his pain symptoms lately because he has been off work at [employer] and not had to be on his feet on concrete for long hours. Patient has done injective therapy in the past that has provided significant improvement of his symptoms. His first 2 epidural injections provided 90% relief lasting several months however the last 2 injections he has gotten have not done as well. Patient is currently managed with pregabalin 100 mg 3 times a day and tramadol 50 mg twice a day. Patient denies any side effects from these medications. He states these medications do help manage some of his pain symptoms. Patient states he is scheduled for a nerve test later this month. His Paul is [id number]. It is been reviewed and appropriate. Review of Systems: General: No recent weight changes, no fever, no sleep disturbances Respiratory: No cough, no shortness of air, no recurring pulmonary infections Cardiovascular/peripheral vascular: No chest pain, no palpitations, no edema, no shortness of breath Gastrointestinal: No new onset incontinence, normal bowel movements reported Genitourinary: No new onset incontinence Musculoskeletal: Low back pain Psychiatric: [Normal mood/affect] Neurological: [Denies weakness in extremities], [denies balance issues] Objective:: Physical Exam: General: Alert and oriented x3, no acute distress, pleasant and cooperative Lungs: Respirations even and unlabored, symmetrical chest expansion Eyes: PERRL Musculoskeletal: Flexion and extension of cervical, lumbar [spine] somewhat guarded secondary to pain, [antalgic gait noted] Neurological: Speech clear, no gross sensory deficit COMPARISON: No relevant prior studies available. FINDINGS: Bones/joints: No acute fracture of the cervical spine. No subluxation or dislocation of the cervical spine. Intervertebral disc space narrowing C3/C4 and C5 through C7 may represent degenerative disc disease.. Anterior osteophyte formation C5/C6. Posterior osteophyte formation C5 through C7. Degenerative changes in the facets at multiple levels. Degenerative changes at C1/C2 Soft tissues: Unremarkable. IMPRESSION: 1. No acute fracture of the cervical spine. 2. No subluxation or dislocation of the cervical spine. 3. Intervertebral disc space narrowing C3/C4 and C5 through C7 may represent degenerative disc disease.. Assessment:: Degenerative disc disease lumbar spine with lumbar radiculopathy symptoms, neck pain, degenerative disc disease cervical spine Plan:: Patient continues to have significant pain in his low back and bilateral extremities as well as some neck pains. I will refill the patient's pregabalin 100 mg 3 times a day and tramadol 50 mg twice a day and provide a 1 month supply of this medication. I have counseled the patient regarding possible cervical or lumbar epidural steroid injections in the future and that he may be a good candidate for a spinal cord stimulator trial due to his chronic pain. We will follow-up with the patient in 1 month. Patient will return to clinic in 1 month for reevaluation of symptoms, medication refill and follow-up. Patient has been advised of risks of oversedation with the prescribed medication. Narcan has been offered to the patient in the event of oversedat
== END | disposition home or self-care (01) ==
PROVIDERS: PCP Family Medicine; Visit Provider Student in an Organized Health Care Education/Training Program
DX: M51.16 Intervertebral disc disorders with radiculopathy, lumbar region (principal); M50.30 Other cervical disc degeneration, unspecified cervical region
CPT/HCPCS: 99212; G0463

== ENCOUNTER → 2022-10-15 14:55 | Outpatient (POV) | payer BC, SELFPAY ==
--- NOTE | 2022-10-15 15:12 | A.OFFVIS_ITS ---
[facility] Pain Management SOAP Note Subjective:: Patient is a pleasant 47-year-old male who presents today for medication refill and follow-up. We are currently treating the patient for degenerative disc disease of lumbar spine with lumbar radiculopathy symptoms. Today he rates his pain a 6 out of 10. Patient states he is having worsening symptoms in his low back that radiates into his bilateral lower extremities. He does describe this as an aching, throbbing sensation that is worse with increased activity. Patient does state it interferes with his ability to perform activities of daily living such as cooking and cleaning or even working on a regular basis. Patient has had multiple epidural injections in the past that did provide upwards of 90% relief lasting several months. Patient is currently managed with 100 mg of pregabalin 3 times a day and tramadol 50 mg 3 times a day. Patient denies any side effects from these medications. He is requesting a refill at today's visit. He is also prescribed phentermine from an outside provider. His Paul is [id number]. Its been reviewed and appropriate. Review of Systems: General: No recent weight changes, no fever, no sleep disturbances Respiratory: No cough, no shortness of air, no recurring pulmonary infections Cardiovascular/peripheral vascular: No chest pain, no palpitations, no edema, no shortness of breath Gastrointestinal: No new onset incontinence, normal bowel movements reported Genitourinary: No new onset incontinence Musculoskeletal: Low back pain, leg pain Psychiatric: [Normal mood/affect] Neurological: [Denies weakness in extremities], [denies balance issues] Objective:: Physical Exam: General: Alert and oriented x3, no acute distress, pleasant and cooperative Lungs: Respirations even and unlabored, symmetrical chest expansion Eyes: PERRL Musculoskeletal: Flexion and extension of lumbar [spine] somewhat guarded secondary to pain, [antalgic gait noted] Neurological: Speech clear, no gross sensory deficit Assessment:: Degenerative disc disease of lumbar spine with lumbar radiculopathy symptoms Plan:: Patient is experiencing worsening symptoms in his low back and legs with limited range of motion. I have discussed with the patient that he may benefit from repeat lumbar epidural steroid injection. Risk and benefits were discussed with the patient and he would like to proceed forward with this plan of care. Patient is not on any blood thinners. Patient has had previous lumbar epidurals that provided 90% relief lasting several months. I will also refill the patient's pregabalin 100 mg 3 times a day and tramadol 50 mg 3 times a day and provide a 1 month supply of these medications. Patient will be scheduled for a LESI L4-L5. Patient has been instructed to contact the clinic with any concerns before the next appointment. Dr. Abad has reviewed this note and agrees with this plan of care. This note was dictated using voice recognition software and make contain errors or omissions. [facility] Disclaimer: The information contained in this section may have been updated after the p kenneth was seen, as this information can be updated by other users. Social History Smoking Status: Never smoker alcohol intake: never current occupational status: employed Travel in the last 8 weeks: None household members: other housing: house current occupational exposures/hazards: Yes caffeine: No
[2022-10-15 15:29] VITALS: BP 140/100; PULSE 84; RESP 18; O2SAT 97; BMI 36.9
== END | disposition home or self-care (01) ==
PROVIDERS: PCP Family Medicine; Visit Provider Nurse Practitioner Family
DX: M51.16 Intervertebral disc disorders with radiculopathy, lumbar region (principal)
CPT/HCPCS: 99212; G0463

== ENCOUNTER 2022-10-28 07:56 | Day surgery (SDC) | payer BC, SELFPAY ==
[2022-10-28 08:18] VITALS: BP 160/88; PULSE 71; RESP 18; TEMP 36.4; O2SAT 95; BMI 36.2
[2022-10-28 08:34] VITALS: BP 162/100; PULSE 72; RESP 18; O2SAT 97
[2022-10-28 08:36] VITALS: BP 162/101; PULSE 72; RESP 18; O2SAT 97
[2022-10-28 08:37] VITALS: BP 134/88; PULSE 68; RESP 18; O2SAT 95
--- NOTE | 2022-10-28 08:37 | EXP.PAIN.PRO ---
Procedure Date: 10/28/22 Time: 08:20 Anesthesiologist:: Moises Licea CRNA Complications:: None Pre-procedure Diagnosis:: Degenerative disc disease lumbar spine multilevels. Lumbar radiculopathy. Lumbar disc bulge L4-5 Post-procedure Diagnosis:: Same. Indications for Procedure:: Very pleasant 47-year-old male that comes our clinic today for repeat lumbar epidural steroid injection at L4-5 level. Patient complains of right hip and leg radicular symptoms to his foot. Also, low back pain at times. He rates his pain 7/10. Patient reports significant improvement terms of his symptoms with previous injections. Procedure Details:: Procedure: Lumbar epidural steroid injection under fluoroscopy Informed consent was obtained and the risks and benefits of the procedure were explained to the patient. The patient was taken to the procedure room and noninvasive monitors placed, including noninvasive blood pressure cuff and pulse oximeter. The back was viewed using C-arm Fluoroscopy and prepped using Chloraprep as a cleansing solution and the L4-L5 interspace was palpated. Skin and subcutaneous tissues were anesthetized using lidocaine 1.5% and a 25-gauge needle. After this, an 18-gauge Touhy epidural needle was placed into the L4-L5 interspace and advanced using fluoroscopic guidance and loss of resistance to air until the epidural space was encountered. After confirmation of needle placement in the epidural space, with dye, a solution containing normal saline, 3 mL and Depo-Medrol 80 mg were incrementally injected into the lumbar epidural space. The patient tolerated the procedure well with no complications. The patient was observed in the Pain Clinic and then discharged home neurologically intact. Plan and Disposition:: Patient was discharged without incident.
== END 2022-10-28 08:37 | disposition home or self-care (01) ==
PROVIDERS: PCP Family Medicine; Visit Provider Nurse Anesthetist, Certified Registered
DX: M51.16 Intervertebral disc disorders with radiculopathy, lumbar region (principal)
CPT/HCPCS: 62323; J1040

== ENCOUNTER → 2022-11-12 08:37 | Outpatient (POV) | payer BC, SELFPAY ==
--- NOTE | 2022-11-12 08:57 | A.OFFVIS_ITS ---
[facility] Pain Management SOAP Note Subjective:: Patient is a pleasant 47-year-old male who presents today for follow-up of lumbar epidural steroid injection of L4-L5 on 10/28/2022. We are currently treating the patient for degenerative disc disease of the lumbar spine with lumbar radiculopathy symptoms. Today he rates his pain a 6 out of 10. He states he has had at least 60% improvement following this injection however it only lasted approximately 3 days. Patient has had multiple injections in the past that have varied from 90% improvement or more to 50 to 60%. Patient does state that the first 2 injections did last approximately 1 month each. Patient denies any new injuries or change to his pain locations. Patient continues to do state his pain is all in his low back and legs. He is currently managed with pregabalin 100 mg 3 times a day and tramadol 50 mg 3 times a day. Patient denies any side effects from these medications. His Paul is [id number]. Its been reviewed and appropriate. Review of Systems: General: No recent weight changes, no fever, no sleep disturbances Respiratory: No cough, no shortness of air, no recurring pulmonary infections Cardiovascular/peripheral vascular: No chest pain, no palpitations, no edema, no shortness of breath Gastrointestinal: No new onset incontinence, normal bowel movements reported Genitourinary: No new onset incontinence Musculoskeletal: Low back pain Psychiatric: [Normal mood/affect] Neurological: [Denies weakness in extremities], [denies balance issues] Objective:: Physical Exam: General: Alert and oriented x3, no acute distress, pleasant and cooperative Lungs: Respirations even and unlabored, symmetrical chest expansion Eyes: PERRL Musculoskeletal: Flexion and extension of lumbar [spine] somewhat guarded secondary to pain, [antalgic gait noted] Neurological: Speech clear, no gross sensory deficit Assessment:: Degenerative disc disease of lumbar spine with lumbar radiculopathy symptoms Plan:: Patient is doing well with his current medication regimen. I will refill his tramadol 50 mg 3 times a day and pregabalin 100 mg 3 times a day and provide a 1 month supply of this medication. I will also order him methocarbamol 750 mg twice daily and provide a 2-week supply of this medication. Patient has been counseled to contact our office if this does provide significant improvement and he would like a refill. Patient will return to clinic in 1 month for reevaluation of symptoms and medication refill. Patient has been instructed to contact the clinic with any concerns before the next appointment. Dr. Abad has reviewed this note and agrees with this plan of care. This note was dictated using voice recognition software and make contain errors or omissions. [facility] Disclaimer: The information contained in this section may have been updated after the patient was seen, as this information can be updated by other users. Social History Smoking Status: Never smoker alcohol intake: never current occupational status: employed Travel in the last 8 weeks: None household members: other housing: house current occupational exposures/hazards: Yes caffeine: No
[2022-11-12 09:03] VITALS: BP 133/87; PULSE 67; RESP 18; O2SAT 98; BMI 39.2
== END | disposition home or self-care (01) ==
PROVIDERS: PCP Family Medicine; Visit Provider Nurse Practitioner Family
DX: M51.16 Intervertebral disc disorders with radiculopathy, lumbar region (principal)
CPT/HCPCS: 99212; G0463

== ENCOUNTER → 2022-12-29 11:24 | Outpatient (POV) | payer BC, SELFPAY ==
--- NOTE | 2022-12-29 11:47 | EXP.PAIN.SOA ---
[facility] Pain Management SOAP Note Subjective:: Patient is a pleasant 47-year-old male who presents today for medication refill and follow-up. We are currently treating the patient for degenerative disc disease of lumbar spine with lumbar radiculopathy symptoms. Today he rates his pain a 8 out of 10. Patient denies any new trauma or injury. Patient denies any change in location or type of pain he experiences. He states he continues to have low back pain with radiating symptoms into his lower extremities. He does describe this as an aching, throbbing sensation that is worse with increased activity and does have some numbness and tingling into his extremities. Patient does state the pain interferes with ability to perform activities of daily living such as cooking and cleaning. Patient has had previous lumbar epidural steroid injections that provided significant relief of upwards of 50 to 90% lasting several months. Patient does state that he feels like it is about time for a repeat injection. Patient is currently managed with pregabalin 100 mg 3 times a day, tramadol 50 mg 3 times a day and methocarbamol 750 mg twice a day. Patient denies any side effects from these medications. His Paul is [id number]. Its been reviewed and appropriate. Review of Systems: General: No recent weight changes, no fever, no sleep disturbances Respiratory: No cough, no shortness of air, no recurring pulmonary infections Cardiovascular/peripheral vascular: No chest pain, no palpitations, no edema, no shortness of breath Gastrointestinal: No new onset incontinence, normal bowel movements reported Genitourinary: No new onset incontinence Musculoskeletal: Low back pain, bilateral leg pain Psychiatric: [Normal mood/affect] Neurological: [Denies weakness in extremities], [denies balance issues] Objective:: Physical Exam: General: Alert and oriented x3, no acute distress, pleasant and cooperative Lungs: Respirations even and unlabored, symmetrical chest expansion Eyes: PERRL Musculoskeletal: Flexion and extension of lumbar [spine] somewhat guarded secondary to pain, [antalgic gait noted] Neurological: Speech clear, no gross sensory deficit Assessment:: Degenerative disc disease of lumbar spine with lumbar radiculopathy symptoms Plan:: Patient is experiencing significant pain in his low back with limited range of motion. I have discussed with the patient that he may benefit from lumbar epidural steroid injection. Risk and benefits were discussed with the patient and he would like to proceed forward with this plan of care. Patient is not on any blood thinners. Patient has previously had significant relief following these lumbar epidural steroid injections of upwards of 90% lasting several months. I will also refill his pregabalin 100 mg 3 times a day, methocarbamol 750 mg twice a day and tramadol 50 mg 3 times a day and provided a 1 month supply of these medications. Patient will be scheduled for an LESI at L4-L5. Patient has been instructed to contact the clinic with any concerns before the next appointment. Dr. Abad has reviewed this note and agrees with this plan of care. This note was dictated using voice recognition software and make contain errors or omissions. [facility] Disclaimer: The information contained in this section may have been updated after the patient was seen, as this information can be updated by other users. Social History Smoking Status: Never smoker alcohol intake: never current occupational status: employed Travel in the last 8 weeks: None household members: other housing: house current occupational exposures/hazards: Yes caffeine: No
[2022-12-29 12:21] VITALS: BP 149/89; PULSE 84; RESP 18; O2SAT 97; BMI 39.1
== END | disposition home or self-care (01) ==
PROVIDERS: PCP Family Medicine; Visit Provider Nurse Practitioner Family
DX: M51.16 Intervertebral disc disorders with radiculopathy, lumbar region (principal)
CPT/HCPCS: 99212; G0463

== ENCOUNTER 2023-02-03 09:33 | Day surgery (SDC) | payer BC, SELFPAY ==
[2023-02-03 09:55] VITALS: BP 130/82; PULSE 78; RESP 18; TEMP 36.7; O2SAT 97; BMI 36.6
[2023-02-03 10:02] VITALS: BP 153/82; PULSE 62; RESP 18; O2SAT 96
[2023-02-03 10:03] VITALS: BP 153/82; PULSE 63; RESP 18; O2SAT 96
--- NOTE | 2023-02-03 10:06 | EXP.PAIN.PRO ---
Procedure Date: 02/03/23 Time: 09:58 Anesthesiologist:: Moises Licea CRNA Complications:: None Pre-procedure Diagnosis:: Degenerative disc lumbar spine multilevels. Lumbar radiculopathy. Post-procedure Diagnosis:: Same. Indications for Procedure:: Patient is a very pleasant 48-year-old male that comes our clinic today for repeat lumbar epidural steroid injection at the L4-5 level. Patient has had significant improvement in terms of his low back pain as well as right leg radicular symptoms with previous injections at the same level. He rates his pain 8/10. Patient describes low back pain as constant, dull, aching. Patient also complains of right leg radicular pain to the foot. Procedure Details:: Procedure: Lumbar epidural steroid injection under fluoroscopy Informed consent was obtained and the risks and benefits of the procedure were explained to the patient. The patient was taken to the procedure room and noninvasive monitors placed, including noninvasive blood pressure cuff and pulse oximeter. The back was viewed using C-arm Fluoroscopy and prepped using Chloraprep as a cleansing solution and the L4-L5 interspace was palpated. Skin and subcutaneous tissues were anesthetized using lidocaine 1.5% and a 25-gauge needle. After this, an 18-gauge Touhy epidural needle was placed into the L4-L5 interspace and advanced using fluoroscopic guidance and loss of resistance to air until the epidural space was encountered. After confirmation of needle placement in the epidural space, with dye, a solution containing normal saline, 3 mL and Depo-Medrol 80 mg were incrementally injected into the lumbar epidural space. The patient tolerated the procedure well with no complications. The patient was observed in the Pain Clinic and then discharged home neurologically intact. Plan and Disposition:: Patient was discharged without incident.
[2023-02-03 10:08] VITALS: BP 129/89; PULSE 70; RESP 18; O2SAT 97
== END 2023-02-03 10:08 | disposition home or self-care (01) ==
PROVIDERS: PCP Family Medicine; Visit Provider Nurse Anesthetist, Certified Registered
DX: M51.16 Intervertebral disc disorders with radiculopathy, lumbar region (principal)
CPT/HCPCS: 62323; J1040

== ENCOUNTER 2023-02-11 16:08 | Emergency (ER) | payer BC, SELFPAY ==
[2023-02-11 16:31] VITALS: BP 141/74; PULSE 82; O2SAT 96
--- NOTE | 2023-02-11 16:41 | XR_ITS ---
PROCEDURE INFORMATION: Exam: XR Left Ankle Exam date and time: 02/11/2023 4:38 PM Age: 48 years old Clinical indication: Injury or trauma; Fall; Swelling (edema); Ankle; Left; Additional info: Acute achilles pain, fell off deck, swelling TECHNIQUE: Imaging protocol: Radiologic exam of the left ankle. Views: 1 or 2 views. COMPARISON: No relevant prior studies available. FINDINGS: Bones/joints: No fractures, dislocations, or bone lesions. No significant joint space narrowing or widening. Soft tissues: No soft tissue gas, radiopaque foreign bodies, or masses. IMPRESSION: No radiographic abnormalities in the left ankle.
--- NOTE | 2023-02-11 16:41 | PC.NURSE ---
Dr. Vazquez at [facility]
[2023-02-11 16:57] VITALS: BP 142/85; PULSE 86; RESP 16; TEMP 36.9; O2SAT 98; BMI 37.6
[2023-02-11 17:01] VITALS: BP 125/77; PULSE 79; O2SAT 97
--- NOTE | 2023-02-11 17:16 | HMH.EDGENADL ---
Discharge Plan Disposition Patient Disposition: Home, Self-Care Condition: Good Prescriptions Prescriptions: No Action levothyroxine 200 MCG tablet 200 mcg PO DAILY duloxetine 60 MG capsule, delayed rel sprinkle 60 mg PO DAILY hydrocodone-acetaminophen 1 EACH tablet 1 tab PO BID ropinirole 0.25 MG tablet 0.25 mg PO HS tramadol 50 mg tablet 50 mg PO TID Qty: 90 0RF pregabalin 100 mg capsule 100 mg PO TID Qty: 90 0RF methocarbamol 750 mg tablet 750 mg PO BID Referrals Follow up/Referrals: Felix Callahan DO [Staff Physician] - See instructions (L achilles tendon rupture - partial - 02/11/23) Provider,Referral, [Primary Care Provider] - See instructions Activity Restrictions/Add. Instructions Additional Instructions/Restrictions: Weightbearing as tolerated. Take Tylenol 1000 mg every 6 hours (4 times daily) and ibuprofen 400 mg every 6 hours (4 times daily) as needed with food and water to prevent GI upset and kidney damage. Follow-up with Dr. Callahan in orthopedics. If you have any other concerning signs or symptoms, return to the ER or your primary care doctor for further evaluation. Clinical Impressions Clinical Impression: Partial rupture of left Achilles tendon Discharge ED Provider: John Vazquez General Adult HPI General Chief complaint: PAIN Stated complaint: AO twisted ankle Time Seen by Provider: 02/11/23 16:10 Mode of Arrival: Wheelchair Source of Information: Patient Limitations: No Limitations Description of Symptoms (Recalled from ER Triage Doc. 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 pt reports he stepped off deck and twisted his left ankle. History of Present Illness HPI narrative: This is a 48-year-old male with no relevant medical history presenting with left heel pain. Patient states he was stepping down off of the deck when he felt an acute pop and pain in his left heel. Left heel was the foot he planted on when he stepped down. Having pain posterior aspect of his heel. No neurologic deficits. No other pain, trauma, falls, or any other concerns. Pain is currently mild, does not radiate. No associated bruising. Related Data Home Medications Medication Instructions Recorded Confirmed duloxetine 60 mg capsule,delayed 60 mg PO DAILY Pain 05/31/21 02/03/23 release sprinkle levothyroxine 200 mcg tablet 200 mcg PO DAILY hypothyroid 05/31/21 02/03/23 hydrocodone 5 mg-acetaminophen 325 1 tab PO BID Pain 01/06/22 02/03/23 mg tablet ropinirole 0.25 mg tablet 0.25 mg PO HS Restless leg 02/06/22 02/03/23 methocarbamol 750 mg tablet 750 mg PO BID . 02/03/23 02/03/23 Previous Rx's Medication Instructions Recorded pregabalin 100 mg capsule 100 mg PO TID Pain #90 caps 12/29/22 tramadol 50 mg tablet 50 mg PO TID Pain #90 tabs 12/29/22 Allergies Allergy/AdvReac Type Severity Reaction Status Date / Time No Known Allergies Allergy Verified 02/03/23 09:55 [facility] Disclaimer: The information contained in this section may have been updated after the patient was seen, as this information can be updated by other users. Social History Smoking Status: Never smoker alcohol intake: never current occupational status: employed Travel in the last 8 weeks: None household members: other housing: house current occupational exposures/hazards: Yes caffeine: No ROS Obtained: Yes All systems reviewed & no additional complaints except as documented Physical Exam General General appearance: alert, in no apparent distress and other ( ) Head Head exam: atraumatic and normocephalic Eye Eye exam: Present normal appearance, PERRL and EOMI ENT ENT exam: Present mucous membranes moist Neck Neck exam: Present normal inspection, full ROM and trachea midline Respiratory Respiratory exam: Absent respiratory distress, wheezes, stridor, accessory muscle u
[2023-02-11 17:39] VITALS: BP 142/85; PULSE 86; RESP 16; TEMP 36.9
== END 2023-02-11 17:41 | disposition home or self-care (01) ==
PROVIDERS: Emergency Provider Emergency Medicine
DX: S86.092A Other specified injury of left Achilles tendon, initial encounter (principal); X50.1XXA Overexertion from prolonged static or awkward postures, initial encounter
CPT/HCPCS: 73600; 99283

== ENCOUNTER → 2023-02-19 08:08 | Outpatient (CLI) | payer BC, SELFPAY ==
--- NOTE | 2023-02-19 08:08 | MR_ITS ---
FINAL REPORT CLINICAL HISTORY: ?? Rupture left Achilles, SLIPPED ON WET GRASS 5 DAY AGO, SWELLING AND BRUISING COMPARISON: None FINDINGS: Multiplanar MR imaging of the left ankle was performed without contrast. The bony structures are intact without evidence of fracture, bone bruise or marrow edema. There is mild degenerative change. No osteochondral lesion is identified. There is thickening of the anterior talofibular ligament which may represent sequela from prior partial tear. The other ligaments are intact. There is complete tear of the Achilles tendon. The posterior tendon is torn from insertion and retracted approximately 2.5 cm. The deep portion of the tendon is torn 7 cm from insertion. There is posterior soft tissue edema or hemorrhage. There is posterior plantar fasciitis. A small subtalar joint effusion is seen. The musculature is intact. There is no evidence of soft tissue mass or cyst. IMPRESSION: Complete tear Achilles tendon as described with soft tissue edema or hemorrhage. Posterior plantar fasciitis. Small subtalar joint effusion. Reviewed, Interpreted and Dictated by Weston Beasley III, MD Transcribed by Floresita Haro Authenticated and . [facility]
== END ==
PROVIDERS: Visit Provider Orthopaedic Surgery
DX: S86.012A Strain of left Achilles tendon, initial encounter (principal)
CPT/HCPCS: 73721

== ENCOUNTER 2023-02-20 09:03 | Outpatient (RCR) | payer BC, SELFPAY | END 2023-02-20 10:00 | disposition home or self-care (01) | LOC: PT 09:03 | PROVIDERS: Visit Provider Orthopaedic Surgery | DX: S86.012A Strain of left Achilles tendon, initial encounter (principal) | CPT/HCPCS: 97760 ==

== ENCOUNTER 2023-03-20 08:00 | Outpatient (RCR) | payer BC, SELFPAY ==
--- NOTE | 2023-03-06 17:37 | HMH.PTOPEV ---
PT Outpatient Evaluation Rehab PT Outpatient Evaluation Start: 03/06/23 14:53 Freq: Status: Active Protocol: Document 03/06/23 15:06 ASH (Rec: 03/06/23 17:36 COMFORTADAM [id number]) E-signed By Odessa Paula, PT Outpatient Therapy Subjective History Subjective History Pt presents to the PT clinic with reports of twisting his L ankle and falling on 2022. Pt reports that he went to the ED because he thought he broke his ankle. Pt reports he went to see Dr. Green who told him he had ruptured his achilles tendon. Pt reports that Dr. Fraire stated he wanted to try conservative management. Pt reports that the pain is improved but his ankle feels weak/unstable. Pt reports non- compliance with wearing boot/ heel lift. PMH: spinal stenosis, DJD (+) Hess test L ankle Educated pt on non-operative achilles tendon rupture rehab protocol per Dr. Naidu. Educated pt on importance of wearing walking boot as well as heel lift per Dr. Naidu. Educated pt to prevent L ankle DF past neutral. Chief Complaint Pain,Stiff,Gives out/Unstable, Weakness Symptom Type Ache Symptoms Relieved By Rest/Positioning,Ice,OTC Meds Symptoms Aggravated By Standing,Bending/Stooping, Physical Activity,Walking, Lifting Prior Functional Limitations None Symptom Description Activity Dependent Level of pain today (0-10) 0 Pain scale - at its best (0-10) 0 Pain scale - at its worst (0-10) 10 Ankle/Foot Eval Gait Observation General Gait Pattern Observation Antalgic Gait Assistive Device Ambulation Assistive Device None ROM left Ankle/Foot Dorsiflexion w/Knee Extended 0 Active Range Motion (degrees) Ankle/Foot Plantar Flexion Active Range 50 of Motion (degrees) Ankle/Foot Eversion Active Range of 24 Motion (degrees) Ankle/Foot Inversion Active Range of 31 Motion (degrees) Ankle/Foot ROM Limitations Muscle Weakness,Pain M
== END 2023-03-20 08:05 | disposition home or self-care (01) ==
LOC: PT 08:00
PROVIDERS: Visit Provider Orthopaedic Surgery
DX: S86.012A Strain of left Achilles tendon, initial encounter (principal)
CPT/HCPCS: 97014; 97110; 97163; G0283

== ENCOUNTER → 2023-09-24 08:50 | Outpatient (POV) | payer BC, SELFPAY ==
[2023-09-24 08:45] VITALS: BP 159/99; PULSE 72; RESP 20; BMI 34.8
--- NOTE | 2023-09-24 09:07 | EXP.PAIN.SOA ---
[facility] [place] Pain Management SOAP Note Subjective:: Patient is a pleasant 48-year-old male who presents today for follow-up of lumbar epidural steroid injection L4-L5 on 02/03/2023. We are currently treating the patient for degenerative disc disease of lumbar spine with lumbar radiculopathy symptoms. Today he rates his pain a 7 out of 10. Patient states when he did have this injection and denied that he had at least 50% improvement and it did last approximately 10 days. Patient states that following that he went back to his baseline very quickly. Patient does also state from our last visit that he did end up having a fall in the end of January. He states he had walked outside barefoot in the grass was wet and he slipped falling face first. He states that he ended up having ankle pain and thought he had possibly broken it but ended up being that he tore his Achilles tendon. Patient states that has improved over time. Patient was previously prescribed tramadol, pregabalin and methocarbamol from our office however he states he really has not been taking these medications because it really was not seeing improvement. He does state that he is scheduled for an MRI on the of this month and then will be following up with O.his Paul has been reviewed and is appropriate. Review of Systems: General: No recent weight changes, no fever, no sleep disturbances Respiratory: No cough, no shortness of air, no recurring pulmonary infections Cardiovascular/peripheral vascular: No chest pain, no palpitations, no edema, no shortness of breath Gastrointestinal: No new onset incontinence, normal bowel movements reported Genitourinary: No new onset incontinence Musculoskeletal: Low back pain, bilateral leg pain Psychiatric: [Normal mood/affect] Neurological: [Denies weakness in extremities], [denies balance issues] Objective:: Physical Exam: General: Alert and oriented x3, no acute distress, pleasant and cooperative Lungs: Respirations even and unlabored, symmetrical chest expansion Eyes: PERRL Musculoskeletal: Flexion and extension of lumbar [spine] somewhat guarded secondary to pain, [antalgic gait noted] Neurological: Speech clear, no gross sensory deficit Assessment:: Degenerative disc disease of lumbar spine with lumbar radiculopathy symptoms Plan:: I will order the patient a compounded cream we will wait to follow-up with the patient after he has had his updated MRI. Patient will return to clinic in 2 weeks for reevaluation of symptoms and plan of care. Patient has been instructed to contact the clinic with any concerns before the next appointment. Dr. Abad has reviewed this note and agrees with this plan of care. This note was dictated using voice recognition software and make contain errors or omissions. [facility] Disclaimer: The information contained in this section may have been updated after the patient was seen, as this information can be updated by other users. Social History Smoking Status: Never smoker alcohol intake: never current occupational status: employed Travel in the last 8 weeks: None household members: other housing: house current occupational exposures/hazards: Yes caffeine: No
== END ==
LOC: SC.PAIN 08:51
PROVIDERS: PCP Family Medicine; Visit Provider Nurse Practitioner Family
DX: M51.16 Intervertebral disc disorders with radiculopathy, lumbar region (principal)
CPT/HCPCS: 99212; G0463

== ENCOUNTER 2023-10-08 10:39 | Outpatient (POV) | payer BC, SELFPAY ==
[2023-10-08 10:56] VITALS: BP 163/106; PULSE 74; RESP 20; BMI 34.8
--- NOTE | 2023-10-08 11:59 | A.OFFVIS_ITS ---
[facility] Pain Management SOAP Note Subjective:: Patient is a pleasant 48-year-old male who presents today for follow-up. Today he rates his pain an 8 out of 10. Patient denies any new trauma or injury. He does state that he went for the evaluation with Dr. Callahan at [facility] and states that he was recommending a lumbar fusion however stated that it was up to him when he wanted to proceed forward with this plan of care. Patient has been having some blood pressure issues that stated needed to be dealt with first. He does state that he continues to have the same pains where it does go down his low back and more prominent at his right hip and down his legs. Patient has previously had a lumbar epidural L4-L5 back in January that did provide 50% improvement however only lasted 10 days. Patients Paul has been reviewed and is appropriate. Review of Systems: General: No recent weight changes, no fever, no sleep disturbances Respiratory: No cough, no shortness of air, no recurring pulmonary infections Cardiovascular/peripheral vascular: No chest pain, no palpitations, no edema, no shortness of breath Gastrointestinal: No new onset incontinence, normal bowel movements reported Genitourinary: No new onset incontinence Musculoskeletal: Low back pain, right hip pain, bilateral leg pain Psychiatric: [Normal mood/affect] Neurological: [Denies weakness in extremities], [denies balance issues] Objective:: Physical Exam: General: Alert and oriented x3, no acute distress, pleasant and cooperative Lungs: Respirations even and unlabored, symmetrical chest expansion Eyes: PERRL Musculoskeletal: Flexion and extension of lumbar [spine] somewhat guarded secondary to pain, date: Neurological: Speech clear, no gross sensory deficit AIC Lumbar MRI spine without contrast Findings: Multiplanar MR imaging of the lumbar spine was performed without contrast. Sagittal T2 weighted images disc degeneration is seen at L3-L4 and L4-L5. Vertebral alignment is normal. There is several hemangiomas. Moderate endplate changes at L3-L4. Conus has an unremarkable appearance. L1-2: No significant stenosis or narrowing L2-3: Annular bulge present. No significant stenosis or neuroforaminal narrowing L3-4: Annular disc bulge, facet arthropathy and osteophytes. Left foraminal disc protrusion. Moderate bilateral neuroforaminal narrowing. Mild central canal stenosis with AP diameter of the thecal sac of 8 mm slightly worse compared to prior L4-L5: Annular disc bulge and facet arthropathy. Posterior midline annular tear. Small central disc protrusion. Left posterior lateral disc protrusion. Mild right and moderate left neuroforaminal narrowing L5-S1: Annular disc bulge and facet arthropathy. Mild bilateral neuroforaminal narrowing Imaging dated 09/29/2023 Assessment:: Degenerative disc disease of lumbar spine with lumbar radiculopathy symptoms Plan:: Patient continues to experience significant pain in his low back, right hip and legs. Patient did get the compounded cream from our last visit and states that it does help. I have discussed with the patient that he may benefit from a repeat lumbar epidural or even more consistent treatment with a spinal cord stimulator or pain pump trial in the future. Educational handouts were given to the patient at today's visit. I have discussed over the possibility of lumbar fusion and have discussed with the patient that I would recommend he look at whether or not currently his pain is still manageable or if it is severe and interfering with daily life. Patient does state currently he feels like it is still manageable however he states that he is on long-term disability from [employer] and does not anticipate that they will ever let him come back to work full-time. Patient states that he would like more time to review and decide his options. Patient will return to clinic in 1 month for reevaluation of symptoms and plan of care. Patient has been instructed to contact the clinic with any concerns before the next appointment. Dr. Abad has reviewed this note and agrees with this plan of care. This note was dictated using voice recognition software and make contain errors or omissions. [facility] Disclaimer: The information contained in this section may have been updated after the patient was seen, as this information can be updated by other users. Social History Smoking Status: Never smoker alcohol intake: never current occupational status: other Travel in the last 8 weeks: None household members: other housing: house current occupational exposures/hazards: Yes caffeine: No
== END 2023-10-08 23:59 ==
LOC: SC.PAIN 10:40
PROVIDERS: PCP Family Medicine; Visit Provider Nurse Practitioner Family
DX: M51.16 Intervertebral disc disorders with radiculopathy, lumbar region (principal)
CPT/HCPCS: 99212; G0463

== ENCOUNTER 2025-01-30 09:40 | Outpatient (POV) | payer OTHER, SELFPAY ==
--- OUTSIDE RECORDS SUMMARY | 2025-01-30 09:45 | XMS_ITS | Data Portability ---
Author Organization [facility] Address [address] [place] [address] Assessment No assessment recorded. Plan of Treatment Reminders Order Date Submit Date Provider Last Modified By Organization Details Last Modified Time Details Appointments None recorded. Lab urinalysis, dipstick 2022 023 [address], [address], 3 11:51:05 testosteron e, free + total, serum 2022 023 [email or web address] Not available 3 07:49:39 CBC 2022 023 PETR Not available 3 16:17:05 PSA, serum or plasma 2022 023 PETR Not available 3 18:52:32 Referral None recorded. Procedures bladder scan (PROC) 2022 023 [facility], [address], 3 11:51:05 bladder scan (PROC) 2022 023 [facility] [address], [address], 3 14:43:33 Surgeries None recorded. Imaging None recorded. Medication Orders testosteron e cypionate 200 mg/mL intramuscul ar oil [email or web address], [address] [place] [address] E Katina Ver[place], [id number], 3 08:59:05 tolterodine ER 4 mg capsule,ext ended release 24 hr 2022 023 [facility], [address] [place] [address] E [place]ina [place], [id number], 3 15:08:53 tadalafil 10 mg tablet 2022 023 [facility], [address] [place] [address] E [place]ina Ver[place], [id number], 3 15:08:52 tamsulosin 0.4 mg capsule 2022 023 [facility], [address] [place] [address] E Katina Veras [place], [id number], 3 15:08:54 Patient TargetsNo targets recorded. Patient InstructionsNo instructions recorded. Reason for Referral None Reported. Results Created Date Observation Date Name Description Value Unit Range Abnormal Flag Note LastModifiedBy Organization Detail LastModifiedTime 11/13/1911/12/2022 bladd er scan (PROC ) Calculated Residual Urine: 67 ml Not Available [facility] [address], [address], 11/12/2022 13:02:26 01/17/20 23 01/16/2023 CBC AUTO NO DIFF (HEMO GRAM) WBC 8.2 10 4.5-11 .5 Not Available [facility] (Lab Registration) [address] [place] [address], [address], 01/16/2023 16:17:05 01/17/20 23 01/16/2023 CBC AUTO NO DIFF (HEMO GRAM) RBC 5.90 10 4.25-5 .57 high Not Available [facility] (Lab Registration) [address] [place], [address], 01/16/2023 16:17:05 01/17/20 23 01/16/2023 CBC AUTO NO DIFF (HEMO GRAM) HGB 16.6 g/dL 13.5-1 7.2 Not Available [facility] (Lab Registration) [address] [place], [address], 01/16/2023 16:17:05 01/17/20 23 01/16/2023 CBC AUTO NO DIFF (HEMO GRAM) HCT 49.0 % 42.0-5 2.0 Not Available [facility] (Lab Registration) [address] [place], [address], 01/16/2023 16:17:05 01/17/20 23 01/16/2023 CBC AUTO NO DIFF (HEMO GRAM) MCV 83.1 fL 80-95 Not Available [facility] (Lab Registration) [address] [place], [address], 01/16/2023 16:17:05 01/17/20 23 01/16/2023 CBC AUTO NO DIFF (HEMO GRAM) MCH 28.1 pg 27.0-3 4.0 Not Available [facility] (Lab Registration) [address] [place], [address], 01/16/2023 16:17:05 01/17/20 23 01/16/2023 CBC AUTO NO DIFF (HEMO GRAM) MCHC 33.9 g/dL 32.0-3 6.0 Not Available [facility] (Lab Registration) [address] [place], [address], 01/16/2023 16:17:05 01/17/20 23 01/16/2023 CBC AUTO NO DIFF (HEMO GRAM) platelet count 215 10 150-45 0 Not Available [facility] (Lab Registration) [address] [place], [address], 01/16/2023 16:17:05 01/17/20 23 01/16/2023 CBC AUTO NO DIFF (HEMO GRAM) RDW 13.3 % 12.3-1 5.1 Not Available [facility] (Lab Registration) [address] [place], [address], 01/16/2023 16:17:05 01/17/20 23 01/16/2023 CBC AUTO NO DIFF (HEMO GRAM) MPV 10.2 fL 7.4-10 .4 Not Available [facility] (Lab Registration) [address] [place], [address], 01/16/2023 16:17:05 01/17/20 23 01/16/2023 CBC AUTO NO DIFF (HEMO GRAM) note Unles s other ledesma noted testi ng perfo rmed at: [facility] [address] [place], [place] [id number] [phone] Janes eng MD CLIA: [id number] Not Available [facility] (Lab Registration) [address] [place], [address], 01/16/2023 16:17:05 01/17/20 23 01/16/2023 PROST ATE SPECI FIC AG (PSA) prostate specific Ag (PSA) 3.65 NG/mL 0.0-4. 0 Not Available [facility] (Lab Registration) [address] [place], [address], 01/16/2023 18:52:31 01/17/20 23 01/16/2023 PROST ATE SPECI FIC AG (PSA) note Unles s other ledesma noted testi ng perfo rmed at: [facility] [address] [place] [phone] Janes eng MD CLIA: [id number] Not Available [facility] (Lab Registration) [address] [place], [address], 01/16/2023 18:52:31 01/17/20 23 01/16/2023 TESTO STERO NE TOTAL note Unles s other ledesma noted testi ng perfo rmed at: [facility] [address] [place], [place] [id number] [phone] Janes eng MD CLIA: [id number] Not Available [facility] (Lab Registration) [address] [place], [address], 01/17/2023 08:18:51 01/17/20 23 01/17/2023 TESTO STERO NE TOTAL testosterone , serum 367 NG/dL 264-91 6 Adult male refer ence inter briana is based on a popul ation of healt hy nonob clare males (BMI <30) betwe en 19 and 39 years old. Louisa ortiz, et.al . JCEM 2017, 102;1 161-1 173. PMID: 37555 103. Perfo rmed at: [facility] [place] [id number] Lab Direc tor: Boy betancourt PhD, Phone : [phone] Not Available [facility] (Lab Registration) [address], [place], [address], 01/17/2023 08:18:51 01/17/20 23 01/16/2023 TESTO STERO NE FREE note Unles s other ledesma noted testi ng perfo rmed at: [facility] [address] [place], [place] [id number] [phone] Janes eng MD CLIA: [id number] Not Available [facility] (Lab Registration) [address] [place], [address], 01/22/2023 16:18:19 01/17/20 23 01/22/2023 TESTO STERO NE FREE free testosterone (direct) 2.9 pg/mL 6.8-21 .5 low Perfo rmed at: [facility] [place] [address] , [place] [address] Lab Direc tor: Lubna fournier MD, Phone : [phone] SENT TO REFER ENCE LAB Not Available [facility] (Lab Registration) [address] [facility], [place], [address], 01/22/2023 16:18:19 01/17/20 23 01/16/2023 urina lysis , dipst ick Leukocytes (reference range) negati ve Not Available [address], [address], 01/16/2023 10:19:40 01/17/20 23 01/16/2023 urina lysis , dipst ick Nitrite (reference range:) negati ve Not Available [address], [address], 01/16/2023 10:19:40 01/17/20 23 01/16/2023 urina lysis , dipst ick Urobilinogen (reference range) 0.2 Not Available [address], [address], 01/16/2023 10:19:40 01/17/20 23 01/16/2023 urina lysis , dipst ick Protein (reference range) negati ve Not Available [address], [address], 01/16/2023 10:19:40 01/17/20 23 01/16/2023 urina lysis , dipst ick pH (reference range 5-8.5) 5.0 Not Available [address], [address], 01/16/2023 10:19:40 01/17/20 23 01/16/2023 urina lysis , dipst ick Blood (reference range:) negati ve Not Available [address], [address], 01/16/2023 10:19:40 01/17/20 23 01/16/2023 urina lysis , dipst ick Specific [place] (reference range) 1.025 Not Available [address], [address], 01/16/2023 10:19:40 01/17/20 23 01/16/2023 urina lysis , dipst ick Ketone (reference range) negati ve Not Available [address], [address], 01/16/2023 10:19:40 01/17/20 23 01/16/2023 urina lysis , dipst ick Bilirubin (reference range) negati ve Not Available [address], [address], 01/16/2023 10:19:40 01/17/20 23 01/16/2023 urina lysis , dipst ick Glucose (reference range) negati ve Not Available [address], [address], 01/16/2023 10:19:40 01/17/20 23 01/16/2023 bladd er scan (PROC ) Calculated Residual Urine: 10 ml Not Available [address], [address], 01/16/2023 10:19:20 Result Notes None recorded. Problems Name Problem SNOMED Code Status Onset Date Resolution Date Notes Provider Name and Address Organization Details Recorded Time Disorder of thyroid gland 80668890 Active 023 MARIA G Thompson - [place] [facility] [place] 3 11:39:27 Anxiety 58434572 Active 023 MARIA G Thompson - [place] [facility] [place] 3 11:40:00 Problem Notes None recorded. Medical Equipment None Reported. Allergies No known drug allergies Medications Name Sig Start Date Stop Date Status Note LastModified by Organization Details LastModified Time tolterodine ER 4 mg capsule,exte nded release 24 hr TAKE ONE CAPSULE BY MOUTH EVERY DAY active Not Available Not Available No t Available hydrocodone 5 mg-acetamino phen 325 mg tablet TAKE ONE TABLET BY MOUTH TWICE DAILY MAY CAUSE DROWSINESS active Not Available Not Available N ot Available tramadol 50 mg tablet TAKE ONE TABLET BY MOUTH THREE TIMES DAILY FOR chronic pain MAY CAUSE DROWSINESS active Not Available Not Available N ot Available methocarbamo l 750 mg tablet TAKE ONE TABLET BY MOUTH TWICE DAILY MAY CAUSE DROWSINESS active Not Available Not Available N ot Available tamsulosin 0.4 mg capsule TAKE ONE CAPSULE BY MOUTH EVERY DAY active Not Available Not Available No t Available ropinirole 0.25 mg tablet TAKE ONE TABLET BY MOUTH EVERY DAY AT BEDTIME active Not Available Not Available No t Available lisinopril 10 mg tablet TAKE ONE TABLET BY MOUTH EVERY DAY active Not Available Not Available No t Available diclofenac sodium 75 mg tablet,delay ed release TAKE ONE TABLET BY MOUTH TWICE DAILY (IN THE MORNING AND IN THE EVENING) --TAKE WITH FOOD-- --DO NOT TAKE WITH OTHER NSAIDS -- --Do not crush, chew, OR split-- active Not Available Not Available No t Available levothyroxin e 200 mcg tablet TAKE ONE TABLET BY MOUTH EVERY DAY active Not Available Not Available No t Available testosterone cypionate 200 mg/mL intramuscula r oil Inject 2 mg every 4 weeks by intramuscul ar route. 2022 active Not Available Not Available Not Avai lable tadalafil 10 mg tablet TAKE ONE TABLET BY MOUTH NEEDED active Not Available Not Available No t Available duloxetine 60 mg capsule,dieudonne yed release TAKE ONE CAPSULE BY MOUTH EVERY DAY active Not Available Not Available No t Available pregabalin 100 mg capsule TAKE ONE CAPSULE BY MOUTH THREE TIMES DAILY FOR nerve pain MAY CAUSE DROWSINESS active Not Available Not Available N ot Available cholecalcife rol (vitamin D3) 1,250 mcg (50,000 unit) capsule TAKE ONE CAPSULE BY MOUTH ONCE a WEEK active Not Available Not Available No t Available Xyosted 75 mg/0.5 mL subcutaneous auto-injecto r INJECT 0.5 ML SUBCUTANEOU SLY ONCE A WEEK active Not Available Not Available No t Available Vitals Date Recorded Body height Body mass index (BMI) Body weight Body temperature Provider Name and Address Organization Details Last Updated DateTime 11/12/2022 182.88 cm 36.6 kg/m2 497569.94 g 97.7 [degF] Eli Beaver [place] - [facility] [place] 11/12/2022 11:39:01 Date Recorded Body height Body mass index (BMI) Body weight Body temperature Provider Name and Address Organization Details Last Updated DateTime 02/06/2023 182.88 cm 36.6 kg/m2 578913.94 g 97.7 [degF] Liv Kennedy [place] - [facility] & [place] 02/06/2023 09:48:33 Social History None recorded. Functional Status None recorded. Mental Status None recorded. Family History Nothing Reported. Medical History No medical history recorded. Past Encounters Encounter ID Performer Location Encounter Start Date Encounter Closed Date Diagnosis/Indication Diagnosis SNOMED-CT Code Diagnosis ICD10 Code Diagnosis Note [id number] Rivera Staples Jr, MD [facility] [address] [address] 11/12/2022 10:58:31 11/12/2022 12:55:22 Overactive urinary bladder 118596620 N32.81 patient with symptoms of urgency and urge incontinen ce as well as nocturia. We will see how he does on the tamsulosin and if he needs the addition of oxybutynin will discuss it as follow-up. Lower urin jordana tract symptoms due to benign prostatic hypertrophy 3331908699 9101 N40.1 Patient with lower urinary tract symptoms suggestive of BPH. His prostate examinatio n is enlarged. Prescripti on for tamsulosin was given today will see him back in 1 month in follow-up. Reduced libido 4320660 R 68.82 patient with symptoms of low libido. We will reassess again and next month. [id number] Rivera Staples Jr, MD [facility] [address] [address] 01/16/2023 09:45:48 01/16/2023 10:11:42 Testosterone level below reference range 948955597 R89.1 patient with symptoms of low testostero ne. We will check levels and letting know the findings. Benign pro static hyperplasia with outflow obstruction 535264628 N40.1 patient with lower urinary tract symptoms. He was placed on Flomax 2 months ago and states he is voiding easily and feels like he is emptying better. His bladder scan today is only 10 cc which is improved from the previous of 67 cc. Patient still has symptom of urgency. Urinary ur gency due to benign prostatic hypertrophy [id number] 06077 N40.1 patient with urinary urgency. His force of stream and nocturia have improved with the tamsulosin . We will add Detrol for the urgency symptoms. We have discussed caffeine restrictio n as well. Erectile dysfunction 860 439784 F52.21 patient complains of difficulty maintainin g erections. We discussed treatment options in a prescripti on for Cialis 10 mg will be prescribed . Screening for malignant neoplasm of prostate 011663102 Z12.5 patient will turn 48 next week. PSA will be obtained today for prostate cancer screening. [id number] Rivera Staples Jr, MD [facility] [address] [address] 02/06/2023 09:31:59 02/06/2023 10:42:30 Testosterone level below reference range 648176494 R89.1 patient with symptoms of low testostero ne. Patient's free testostero ne is well below normal limits. We discussed treatment options and side effects today. We are going to give him a test dose of 400 mg of testostero ne cypionate. I will see him back in 1 month to re-evaluat e. We did discuss possible side effects such as elevated red blood cell count put him at risk for stroke, DVTs and heart attacks. We also discussed that testostero ne his food supply for prostate cancer. His PSA is elevated for his age. Prostate s pecific antigen above reference range 294928714 R97.20 recent PSA was 3.6. This is elevated for his age. Prostate examinatio n today showed a 30 g prostate that was smooth and symmetric. We discussed possible causes of elevated PSA including prostate cancer, BPH and prostatiti s. We will monitor the PSA closely. Lower urin jordana tract symptoms due to benign prostatic hypertrophy [id number] 9101 N40.1 Patient with lower urinary tract symptoms suggestive of BPH. His prostate examinatio n is enlarged. Prescripti on for tamsulosin was given today will see him back in 1 month in follow-up. Health Concerns Section Related Observation LastModified by Organization Detai ls LastModified Time None Recorded Concern Status LastModified by Organization Details LastModified Time None Recorded Advance Directives Directive None Recorded Payers Insurance Date Sequence Insurance Name Policy Number Policy Mcclain Covered Member ID Mcclain Member ID Guarantor Name 09/27/2023 1 [place] [id number] Mason Garrison [id number] Raj Garrison Notes Date Note Type Note Provider Name and Address Organization Details Recorded Time 11/12/2022 text/html Patient is a 47-year-old white male referred for lower urinary tract symptoms. Patient states he has urgency with occasional urinary leakage, nocturia every 2 hours. He states he voids only small amounts at a time. States he drinks 1 coke per day. Bladder scan today shows 67 cc residual. Patient has history of spondylosis of his back.Patient also complains of erectile dysfunction. He states he has difficulty attaining and maintaining erections. He states low energy and libido. Rivera Staples Jr, MD [address] [place] [address] Drive, [address], [address], [facility] & [place] 11/20/2022 14:29:41 01/16/2023 text/html Patient is a 47-year-old white male with history of urinary urgency and occasional urgency incontinence. It is initial visit in October he was also having some nocturia every 2 hours and voiding only small amounts at a time. His bladder scan showed a residual of 67 cc in his prostate 40 g size. Patient was placed on tamsulosin and he returns today in follow-up. States he immediately felt like he was emptying better on the medication. Bladder scan today he is improved at only 10 cc. Still has Daily urgency. He refrain from drinking of fluids on road trips.Patient also with decrease in energy and libido. He states difficulty maintaining erections as well. He is single. Rivera Staples Jr, MD [address], [address], [place], [address], [facility] & [place] 01/16/2023 10:28:14 02/06/2023 text/html Patient is a 48-year-old white male returns today in follow-up for low energy and libido. His testosterone was obtained January 16. His free testosterone was very low at 2.9. Hemoglobin was 6.6 in his PSA was 3.6.Patient also with history of BPH and continues on Flomax with good results.He also has history of urinary urgency and this is improved with addition of Detrol to the tamsulosin.Patient also with history of erectile dysfunction and doing well with the Cialis 10 mg as needed. Rivera Staples Jr, MD [address] [place] [address], [address], [place], [address], [place] [facility] - [place] [facility] [place] 02/06/2023 13:21:53
--- OUTSIDE RECORDS SUMMARY | 2025-01-30 09:45 | XMS_ITS | Clinical Summary ---
Author Organization [facility] Address [address] [place] [address] Care Team Providers Care Automobile Service Writer Name Role Phone Lisandro Schwartz MD Primary Care Provider [phone] Kassandra Albright APRN, DNP Unavailable [phone] Allergies Active Allergy Reactions Criticality Noted Date Comments Other Unknown - Patient st ates they do not know rxn details Low 03/29/2019 ragweed Medications DULoxetine (Cymbalta) [address] capsule Take 60 mg by mouth. 1 Active pregabalin (Lyrica) 75 MG capsule TAKE ONE CAPSULE BY MOUTH THREE TIMES DAILY MAY CAUSE DROWSINESS 1 Active predniSONE (Deltasone) 20 MG tablet TAKE ONE TABLET BY MOUTH TWICE DAILY FOR 5 DAYS --TAKE WITH FOOD-- 1 Active levothyroxine (Synthroid, Levoxyl) 200 MCG tablet Take 200 mcg by mouth 1 (one) time each day. 1 Active Elastic Bandages & Supports (Lumbar Back Brace/Support Pad) misc 1 Units 1 (one) time for 1 dose. Lumbar support brace, use daily at work as needed. 1 each 1 Active baclofen (Lioresal) 10 MG tablet Take 1 tablet (10 mg total) by mouth 2 (two) times a day if needed for muscle spasms. 60 tablet 2 1 Active Active Problems No known active problems Family History Medical History Relation Name Comments Diabetes Other Relation Name Status Comments Other Social History Tobacco Use Types Packs/Day Years Used Date Smoking Tobacco: Never Smokeless Tobacco: Never Alcohol Use Standard Drinks/Week Comments No 0 (1 standard drink = 0.6 oz pur e alcohol) Sex and Gender Information Value Date Recorded Sex Assigned at Not on file Legal Sex Male 7:11 PM EDT Gender Identity Not on file Sexual Orientation Not on file Last Filed Vital Signs Vital Sign Reading Time Taken Comments Blood Pressure 158/98 05/10/2021 10:05 AM EDT Pulse 69 05/10/2021 10:05 AM EDT Temperature - - Respiratory Rate - - Oxygen Saturation 96% 05/10/2021 10:05 AM EDT Inhaled Oxygen Concentration - - Weight 113 kg (250 lb) 05/10/2021 10:05 AM EDT Height 180.3 cm (5' 11 ) 05/10/2021 10:05 AM EDT Body Mass Index 34.87 05/10/2021 10:05 AM EDT Plan of Treatment Health Maintenance Due Date Last Done Comments [facility]-Depression Screening 1973 [facility]-/Child/Adol SDOH Screenings 1973 [facility]- SDOH Screenings 1991 [facility]-Adult SDOH Screenings 1991 [facility]-DTaP,Tdap,and Td Vaccine s (1 - Tdap) 01/21/1992 [facility]-Hepatitis B Vaccines (1 of 3 - 19+ 3-dose series) 01/21/1992 CT Colonography 2018 Colonoscopy 2018 FIT-DNA 2018 FIT 2018 FOBT 2018 Sigmoidoscopy 2018 [facility]-Colorectal Cancer Screening 2018 [facility]-Pneumococcal Vaccine: 50 + Years (1 of 1 - PCV) 2023 [facility]-Zoster Vaccines (1 of 2) 2023 [id number] Vaccine (1 - 20 24-25 season) 2024 [facility]-Influenza Vaccine (#1) 2025 HPV Vaccines Aged Out No longer eligi ble based on patient's age to complete this topic [facility]-HIB Vaccines Aged Out No longer e ligible based on patient's age to complete this topic [facility]-Hepatitis A Vaccines Aged Out No longer eligible based on patient's age to complete this topic [facility]-IPV Vaccines Aged Out No longer e ligible based on patient's age to complete this topic [facility]-Rotavirus Vaccines Aged Out No lo nger eligible based on patient's age to complete this topic Insurance ANTH Care Teams Automobile Service Writer Relationship Specialty Start Date End Date Lisandro Schwartz MD [address] [place] [address] PCP - General 11/30/20 Kassandra Albright, EXTENSION COURSE COUNSELOR, DNP [address] [facility] [address] [place] [id number] Nurse Practitioner Neurosurgery 05/10/21
--- OUTSIDE RECORDS SUMMARY | 2025-01-30 09:45 | XMS_ITS | Clinical Summary ---
Author Organization [facility] Address [address] [place] [id number] Phone [email or web address] Care Team Providers Care Systems Security Analyst Name Role Phone Abiel Jackson MD Primary Care Provider [phone] Allergies Active Allergy Reactions Criticality Noted Date Comments Other 03/29/2019 ragweed Medications levothyroxine (SYNTHROID) 200 MCG tablet Take 200 mcg by mouth 1 (one) time each day. 1 Active DULoxetine (CYMBALTA) [address] capsule Take 60 mg by mouth 1 (one) time each day. 1 Active pregabalin (LYRICA) 75 MG capsule TAKE ONE CAPSULE BY MOUTH TWICE DAILY MAY CAUSE DROWSINESS 1 Active baclofen (LIORESAL) 10 MG tablet Take 10 mg by mouth as needed in the morning and 10 mg as needed in the evening. 1 Active HYDROcodone-ilan taminophen (NORCO) 5-325 MG per tablet TAKE ONE TABLET BY MOUTH TWICE DAILY MAY CAUSE DROWSINESS 2 Active rOPINIRole (REQUIP) 0.25 MG tablet Take 0.25 mg by mouth 1 (one) time each day. 2 Active traMADol (ULTRAM) 50 MG tablet TAKE ONE TABLET BY MOUTH THREE TIMES DAILY MAY CAUSE DROWSINESS 2 Active pregabalin (LYRICA) 100 MG capsule 2 Active Active Problems No known active problems Social History Tobacco Use Types Packs/Day Years Used Date Smoking Tobacco: Never Smokeless Tobacco: Never Alcohol Use Standard Drinks/Week Comments Yes 0 (1 standard drink = 0.6 oz pur e alcohol) Intimate Partner Violence Answer Date R ecorded Insults You Not on file 10/31/2020 Threatens You Not on file 10/31/2020 Screams at You Not on file 10/31/2020 Physically Hurt Not on file 10/31/2020 Intimate Partner Violence Score Not on file 10/31/2020 Alcohol Use Answer Date Recorded Alcohol Use Status Yes 10/31/2020 Depression Answer Date Recorded PHQ Total Score 0 05/03/2022 Stress Answer Date Recorded Stress in your Life Not on file 05/23/2024 Dealing with Stress 3 05/23/2024 Sex and Gender Information Value Date Recorded Sex Assigned at Not on file Legal Sex Male 12:16 PM CDT Gender Identity Not on file Sexual Orientation Not on file Last Filed Vital Signs Vital Sign Reading Time Taken Comments Blood Pressure 155/96 01/27/2022 4:18 PM EDT Pulse 89 01/27/2022 4:18 PM EDT Temperature 36.3 C (97.4 F) 01/27/2022 4:18 PM EDT Respiratory Rate 18 01/27/2022 4:18 PM EDT Oxygen Saturation 97% 01/27/2022 4:18 PM EDT Inhaled Oxygen Concentration - - Weight 127 kg (279 lb 8 oz) 12/18/2021 9:30 PM E DT Height 180.3 cm (5' 11 ) 12/18/2021 9:30 PM EDT Body Mass Index 38.98 12/18/2021 9:30 PM EDT Plan of Treatment Health Maintenance Due Date Last Done Comments Dental Cleaning/Exam 1973 Hepatitis B Immunization (1 of 3 - 19+ 3-dose series) 01/21/1992 Tetanus Diphtheria and Pertu ssis Immunization (1 - Tdap) 01/21/1992 Colorectal Cancer Screening 2003 Zoster Immunization (1 of 2) 2023 Covid-19 Immunization (1 - 2 25 season) 2024 Influenza Immunization (#1) 2025 HIB Immunization Aged Out No longer e ligible based on patient's age to complete this topic HPV Immunization Aged Out No longer e ligible based on patient's age to complete this topic Hepatitis A Immunization Aged Out No longer eligible based on patient's age to complete this topic Pneumococcal: Ped (0 to 5 Yr s) and At-Risk Member (6 to 64 Yrs) Aged Out No longer e ligible based on patient's age to complete this topic Polio Immunization Aged Out No longer eligible based on patient's age to complete this topic Insurance [facility] [place] [address] [place] [address] OPT OUT NO [place] NB Care Teams Systems Security Analyst Relationship Specialty Start Date End Date Abiel Jackson MD [address] [facility] [address] [place] [address] PCP - General Semi Automatic Sewing Machine Operator 04/09/21
--- NOTE | 2025-01-30 10:08 | A.OFFVIS_ITS ---
[facility] Disclaimer: The information contained in this section may have been updated after the patient was seen, as this information can be updated by other users. Social History Smoking Status: Never smoker alcohol intake: never current occupational status: other Travel in the last 8 weeks?: None household members: other housing: house current occupational exposures/hazards: Yes caffeine: No PM Subjective & Objective Subjective Subjective:: Patient is a pleasant 50-year-old male who presents today for worsening neck pain with radiating numbness and tingling into his right upper extremity and going into his right thumb index finger and middle finger. Patient states this has been going on for some time and has progressively worsening over the last several months. Patient states the pain does interfere with his ability perform activities of daily living such as cooking and cleaning. Patient is interested in injection therapy as it did provide significant improvement with his low back symptoms in the past. Patient does make mention that he is had back surgery since seeing us last in April. He states that they did not end up doing a lumbar fusion however did go in and shave down the bone and it did help with his sciatica. Patient does still state he feels like his overall low back is weak. Patient states that he really noticed more worsening symptoms of his neck following having this surgery. Patient has been prescribed compounded cream in the past however states he does not have any refills. Patient does also make mention that he was let go there at [facility] and he is in the process of filing for disability. His Paul has been reviewed and is appropriate. Review of Systems: General: No recent weight changes, no fever, no sleep disturbances Respiratory: No cough, no shortness of air, no recurring pulmonary infections Cardiovascular/peripheral vascular: No chest pain, no palpitations, no edema, no shortness of breath Gastrointestinal: No new onset incontinence, normal bowel movements reported Genitourinary: No new onset incontinence Musculoskeletal: Neck pain, right arm numbness tingling, finger numbness, altered manager fine Psychiatric: [Normal mood/affect] Neurological: [Denies weakness in extremities], [denies balance issues] Pain at rest (0-10 scale): 7 Objective Objective:: Physical Exam: General: Alert and oriented x3, no acute distress, pleasant and cooperative Lungs: Respirations even and unlabored, symmetrical chest expansion Eyes: PERRL Musculoskeletal: Flexion and extension of cervical [spine] somewhat guarded secondary to pain, [antalgic gait noted] positive Spurling's test Neurological: Speech clear, no gross sensory deficit FINDINGS: Bones/joints: No acute fracture of the cervical spine. No subluxation or dislocation of the cervical spine. Intervertebral disc space narrowing C3/C4 and C5 through C7 may represent degenerative disc disease.. Anterior osteophyte formation C5/C6. Posterior osteophyte formation C5 through C7. Degenerative changes in the facets at multiple levels. Degenerative changes at C1/C2 Soft tissues: Unremarkable. IMPRESSION: 1. No acute fracture of the cervical spine. 2. No subluxation or dislocation of the cervical spine. 3. Intervertebral disc space narrowing C3/C4 and C5 through C7 may represent degenerative disc disease.. Has patient had previous pain injection?: No Conservative treatment options previously tried: Home exercise plan Length of treatment: Longer than 12 weeks Meds Home Medications and Allergies Home Medications ?Medication ?Instructions ?Recorded ?Confirmed ?Type duloxetine 60 mg capsule,delayed 60 mg PO DAILY Pain 1 07/31/20 03/26/23 History release sprinkle levothyroxine 200 mcg tablet 200 mcg PO DAILY hypothyr oid 05/31/21 03/26/23 History ropinirole 0.25 mg tablet 0.25 mg PO HS Restless leg 0 02/06/22 03/26/23 History pregabalin 100 mg capsule 100 mg PO TID Pain #90 caps 12/29/22 03/26/23 Rx tramadol 50 mg tablet 50 mg PO TID Pain #90 tabs 0 12/29/22 03/26/23 Rx methocarbamol 750 mg tablet 750 mg PO BID . 02/03/23 0 03/26/23 History New Prescriptions to Start Prescriptions: Allergies Allergy/AdvReac Type Severity Reaction Status Date / Time No Known Allergies Allergy Verified 03/26/23 11:24 Assessment and Plan *Assessment and plan (1) Degenerative disc disease, cervical: Status: Acute Category: Medical Code(s): M50.30 - Other cervical disc degeneration, unspecified cervical region (2) Cervical radiculopathy: Status: Acute Category: Medical Code(s): M54.12 - Radiculopathy, cervical region Plan Patient is experiencing worsening pain in their neck with radiating tingling and burning sensations into their right upper extremity. Patient did have limited range of motion of his cervical spine with a positive Spurling's test. I did discuss with the patient that I do believe they would benefit from a cervical epidural steroid injection. Risk and benefits were discussed with patient and they would like to proceed forward with this plan of care. Patient has tried and failed conservative therapy including oral medications, heat and ice, topicals, at home stretching exercise for longer than 12 weeks that was physician guided. Patient is in the process of trying to get a cervical MRI approved. We will continue to monitor with the advanced image findings. Patient has not had any cervical epidurals in the past to compare to. Patient's symptoms are consistent with the C6-C7 dermatome. We will plan on doing injec tion at this level. Patient will be scheduled for a UDAY C6-C7 under fluoroscopy. Patient denies any blood thinners. I will send in a new order of the compounded cream. Patient has been instructed to contact the clinic with any concerns before the next appointment. Dr. Abad has reviewed this note and agrees with this plan of care. This note was dictated using voice recognition software and make contain errors or omissions. All injections are used with Lidocaine, Bupivacaine and dexamethasone unless otherwise stated as a diagnostic in which it has no steroid. Occasionally urine drug screen is needed to verify patient's compliance with our office pain contract. This is ordered based off specific treatments related to chronic pain with the potential to abuse certain medications.
[2025-01-30 10:51] VITALS: BP 135/81; PULSE 74; RESP 16; O2SAT 97; BMI 36.6
== END 2025-01-30 23:59 | disposition home or self-care (01) ==
LOC: SC.PAIN 09:42
PROVIDERS: PCP Family Medicine; Visit Provider Nurse Practitioner Family
DX: M50.30 Other cervical disc degeneration, unspecified cervical region (principal); M54.12 Radiculopathy, cervical region
CPT/HCPCS: 99212; G0463

== ENCOUNTER 2025-02-03 14:27 | Outpatient (CLI) | payer OTHER, SELFPAY ==
--- NOTE | 2025-02-03 14:29 | MR_ITS ---
FINAL REPORT TECHNIQUE: Multiplanar MR without contrast CLINICAL HISTORY: NECK PAIN NUMBNESS IN FINGERS IN RIGHT HAND NO INJURY FINDINGS: Limited images of the posterior fossa are unremarkable. There is minimal retrolisthesis of C3 on 4. Remaining alignment is normal. Cervical spinal cord shows normal signal and contour. C2-3: Tiny left paracentral disc protrusion. C3-4: Moderate annular disc bulge, asymmetric to the left. Severe left neuroforaminal narrowing. Mild left lateral recess stenosis. C4-5: Unremarkable C5-6: Moderate annular disc bulge. Mild central canal stenosis. Moderate bilateral neuroforaminal narrowing. C6-7: Mild to moderate annular disc bulge. There is no canal stenosis or nerve root compression. C7-T1: Unremarkable IMPRESSION: Multilevel degenerative changes, most pronounced left side C3-4 and laterally C5-6. Reviewed, Interpreted and Dictated by Gustavo Garcia MD Transcribed by Nohemy Toro Authenticated and [facility]
--- OUTSIDE RECORDS SUMMARY | 2025-02-03 14:29 | XMS_ITS | Clinical Summary ---
Author Organization [facility] Address [address] [place] [address] Care Team Providers Care Vending Machine Assembler Name Role Phone Lisandro Schwartz MD Primary Care Provider [phone] Kassandra Albright APRN, DNP Unavailable [phone] Allergies Active Allergy Reactions Criticality Noted Date [...] 2023 UKY-Zoster Vaccines (1 of 2) 2023 [id number] Vaccine (1 - 20 24-25 season) 2024 [...] complete this topic Insurance [employer] Care Teams Vending Machine Assembler Relationship Specialty Start Date End Date Lisandro Schwartz MD [address] [place] [address] PCP - General 11/30/20 Kassandra Albright, DIRECTOR TITLE, DNP [address] [facility] [address] [place] [phone] Nurse Practitioner Neurosurgery 05/10/21
--- OUTSIDE RECORDS SUMMARY | 2025-02-03 14:29 | XMS_ITS | Clinical Summary ---
Author Organization [facility] Address [address] [place] [address] Phone [email or web address] Care Team Providers Care Operater Name Role Phone Abiel Jackson MD Primary Care Provider [phone] Allergies Active Allergy Reactions Criticality Noted Date [...] patient's age to complete this topic Insurance [facility] [place] [address] [place] [address] OPT OUT NO [place] NB Care Teams Operater Relationship Specialty Start Date End Date Abiel Jackson MD [address] [facility] [address] [place] [address] PCP - General Furrier Apprentice 04/09/21
--- OUTSIDE RECORDS SUMMARY | 2025-02-03 14:29 | XMS_ITS | Data Portability ---
Author Organization [facility] and [facility] [place] Address [address] [place] [address] Assessment No assessment recorded. Plan of Treatment Reminders Order Date Submit Date Provider Last Modified By Organization Details Last Modified Time Details Appointments None recorded. Lab urinalysis, dipstick [address], [address], 3 11:51:05 testosteron e, free + total, serum 2022 023 [email or web address] Not available 3 07:49:39 CBC 2022 023 PETR Not available 3 16:17:05 PSA, serum or plasma 2022 023 PETR Not available 3 18:52:32 Referral None recorded. Procedures bladder scan (PROC) 2022 023 [facility] [address], [address], 3 11:51:05 bladder scan (PROC) 2022 023 [facility] [address], [address], 3 14:43:33 Surgeries None recorded. Imaging None recorded. Medication Orders testosteron e cypionate 200 mg/mL intramuscul ar oil [email or web address], [address] [place] [address] E Katina Veras [place], [id number], 3 08:59:05 tolterodine ER 4 mg capsule,ext ended release 24 hr 2022 023 [facility], [address] [place] [address] E Katina Veras [place], [id number], 3 15:08:53 tadalafil 10 mg tablet 2022 023 [facility], [address] [place] [address] E Katina Ver[place], [id number], 3 15:08:52 tamsulosin 0.4 mg capsule 2022 023 [facility], [address] [place] [address] E Katina Veras [place], [id number], 3 15:08:54 Patient TargetsNo targets recorded. Patient InstructionsNo instructions recorded. Reason for Referral None Reported. Results Created Date Observation Date Name Description Value Unit Range Abnormal Flag Note LastModifiedBy Organization Detail LastModifiedTime 11/13/1911/12/2022 bladd er scan (PROC ) Calculated Residual Urine: 67 ml Not Available [facility] [address], [address], 11/12/2022 13:02:26 01/17/20 23 01/16/2023 CBC AUTO NO DIFF (HEMO GRAM) WBC 8.2 10 4.5-11 .5 Not Available [facility] (Lab Registration) [address] [place] [address], [address], 01/16/2023 16:17:05 01/17/20 23 01/16/2023 CBC AUTO NO DIFF (HEMO GRAM) RBC 5.90 10 4.25-5 .57 high Not Available [facility] (Lab Registration) [address] [place], [address], 01/16/2023 16:17:05 01/17/20 23 01/16/2023 CBC AUTO NO DIFF (HEMO GRAM) HGB 16.6 g/dL 13.5-1 7.2 Not Available [facility] (Lab Registration) [address] [place], [address], 01/16/2023 16:17:05 01/17/20 23 01/16/2023 CBC AUTO NO DIFF (HEMO GRAM) HCT 49.0 % 42.0-5 2.0 Not Available [facility] (Lab Registration) [address] [place], [address], 01/16/2023 16:17:05 01/17/20 23 01/16/2023 CBC AUTO NO DIFF (HEMO GRAM) MCV 83.1 fL 80-95 Not Available [facility] (Lab Registration) [address] [place], [address], 01/16/2023 16:17:05 01/17/20 23 01/16/2023 CBC AUTO NO DIFF (HEMO GRAM) MCH 28.1 pg 27.0-3 4.0 Not Available [facility] (Lab Registration) [address] [place], [address], 01/16/2023 16:17:05 01/17/20 23 01/16/2023 CBC AUTO NO DIFF (HEMO GRAM) MCHC 33.9 g/dL 32.0-3 6.0 Not Available [facility] (Lab Registration) [address] [place], [address], 01/16/2023 16:17:05 01/17/20 23 01/16/2023 CBC AUTO NO DIFF (HEMO GRAM) platelet count 215 10 150-45 0 Not Available [facility] (Lab Registration) [address] [place], [address], 01/16/2023 16:17:05 01/17/20 23 01/16/2023 CBC AUTO NO DIFF (HEMO GRAM) RDW 13.3 % 12.3-1 5.1 Not Available [facility] (Lab Registration) [address] [place], [address], 01/16/2023 16:17:05 01/17/20 23 01/16/2023 CBC AUTO NO DIFF (HEMO GRAM) MPV 10.2 fL 7.4-10 .4 Not Available [facility] (Lab Registration) [address] [place], [address], 01/16/2023 16:17:05 01/17/20 23 01/16/2023 CBC AUTO NO DIFF (HEMO GRAM) note Unles s other ledesma noted testi ng perfo rmed at: [facility] [address] [place], [place] [id number] [phone] Janes eng MD CLIA: [id number] Not Available [facility] (Lab Registration) [address] [place], [address], 01/16/2023 16:17:05 01/17/20 23 01/16/2023 PROST ATE SPECI FIC AG (PSA) prostate specific Ag (PSA) 3.65 NG/mL 0.0-4. 0 Not Available [facility] (Lab Registration) [address] [place], [address], 01/16/2023 18:52:31 01/17/20 23 01/16/2023 PROST ATE SPECI FIC AG (PSA) note Unles s other ledesma noted testi ng perfo rmed at: [facility] [address] [place] [phone] Janes eng MD CLIA: [id number] Not Available [facility] (Lab Registration) [address] [place], [address], 01/16/2023 18:52:31 01/17/20 23 01/16/2023 TESTO STERO NE TOTAL note Unles s other ledesma noted testi ng perfo rmed at: [facility] [address] [place], [place] [id number] [phone] 00 Janes eng MD CLIA: [id number] Not Available [facility] (Lab Registration) [address] [place], [address], 01/17/2023 08:18:51 01/17/20 23 01/17/2023 TESTO STERO NE TOTAL testosterone , serum 367 NG/dL 264-91 6 Adult male refer ence inter briana is based on a popul ation of healt hy nonob clare males (BMI <30) betwe en 19 and 39 years old. Louisa ortiz, et.al . JCEM 2017, 102;1 161-1 173. PMID: 05624 103. Perfo rmed at: [facility] [place] [id number] Lab Direc tor: Boy betancourt PhD, Phone : [phone] Not Available [facility] (Lab Registration) [address], [place], [address], 01/17/2023 08:18:51 01/17/20 23 01/16/2023 TESTO STERO NE FREE note Unles s other ledesma noted testi ng perfo rmed at: [facility] [address] [place], [place] [id number] [phone] Janes eng MD CLIA: [id number] Not Available [facility] (Lab Registration) [address] [place] [place], [address], 01/22/2023 16:18:19 01/17/20 23 01/22/2023 TESTO STERO NE FREE free testosterone (direct) 2.9 pg/mL 6.8-21 .5 low Perfo rmed at: [facility] [place] [address] , [place] [address] Lab Direc tor: Lubna fournier MD, Phone : [phone] SENT TO REFER ENCE LAB Not Available [facility] (Lab Registration) [address] [facility], [place], [address], 01/22/2023 16:18:19 01/17/20 23 01/16/2023 urina lysis , dipst ick Leukocytes (reference range) negati ve Not Available [address], [address], 01/16/2023 10:19:40 01/17/20 23 01/16/2023 urina lysis , dipst ick Nitrite (reference range:) negati ve Not Available [address], [address], 01/16/2023 10:19:40 01/17/20 23 01/16/2023 urina lysis , dipst ick Urobilinogen (reference range) 0.2 Not Available [address], [address], 01/16/2023 10:19:40 01/17/20 23 01/16/2023 urina lysis , dipst ick Protein (reference range) negati ve Not Available [address], [address], 01/16/2023 10:19:40 01/17/20 23 01/16/2023 urina lysis , dipst ick pH (reference range 5-8.5) 5.0 Not Available [address], [address], 01/16/2023 10:19:40 01/17/20 23 01/16/2023 urina lysis , dipst ick Blood (reference range:) negati ve Not Available [address], [address], 01/16/2023 10:19:40 01/17/20 23 01/16/2023 urina lysis , dipst ick Specific [place] (reference range) 1.025 Not Available [address], [address], 01/16/2023 10:19:40 01/17/20 23 01/16/2023 urina lysis , dipst ick Ketone (reference range) negati ve Not Available [address], [address], 01/16/2023 10:19:40 01/17/20 23 01/16/2023 urina lysis , dipst ick Bilirubin (reference range) negati ve Not Available [address], [address], 01/16/2023 10:19:40 01/17/20 23 01/16/2023 urina lysis , dipst ick Glucose (reference range) negati ve Not Available [address], [address], 01/16/2023 10:19:40 01/17/20 23 01/16/2023 bladd er scan (PROC ) Calculated Residual Urine: 10 ml Not Available [address], [address], 01/16/2023 10:19:20 Result Notes None recorded. Problems Name Problem SNOMED Code Status Onset Date Resolution Date Notes Provider Name and Address Organization Details Recorded Time Disorder of thyroid gland 56551143 Active 023 MARIA G Thompson - [place] [facility] [place] 3 11:39:27 Anxiety 81016407 Active 023 MARIA G Thompson - [place] [facility] [place] 3 11:40:00 Problem Notes None recorded. Medical [...] Available No t Available duloxetine 60 mg capsule,dieduonne yed release TAKE ONE CAPSULE BY MOUTH [...] Updated DateTime 11/12/2022 182.88 cm 36.6 kg/m2 645055.94 g 97.7 [degF] Eli Beaver [place] - [facility] & [place] 11/12/2022 11:39:01 Date Recorded Body height Body mass index (BMI) Body weight Body temperature Provider Name and Address Organization Details Last Updated DateTime 02/06/2023 182.88 cm 36.6 kg/m2 762561.94 g 97.7 [degF] Liv Kennedy [place] - [facility] & [place] 02/06/2023 09:48:33 Social History None recorded. Functional Status None recorded. Mental Status None recorded. Family History Nothing Reported. Medical History No medical history recorded. Past Encounters Encounter ID Performer Location Encounter Start Date Encounter Closed Date Diagnosis/Indication Diagnosis SNOMED-CT Code Diagnosis ICD10 Code Diagnosis Note [id number] Rivera Staples Jr, MD [facility] [address] [address] 11/12/2022 10:58:31 11/12/2022 12:55:22 Overactive urinary bladder 431210896 N32.81 patient with symptoms of urgency and urge incontinen ce as well as nocturia. We will see how he does on the tamsulosin and if he needs the addition of oxybutynin will discuss it as follow-up. Lower urin jordana tract symptoms due to benign prostatic hypertrophy [id number] 9101 N40.1 Patient with lower urinary tract symptoms suggestive of BPH. His prostate examinatio n is enlarged. Prescripti on for tamsulosin was given today will see him back in 1 month in follow-up. Reduced libido 7648902 R 68.82 patient with symptoms of low libido. We will reassess again and next month. [id number] Rivera Staples Jr, MD [facility] [address] [address] 01/16/2023 09:45:48 01/16/2023 10:11:42 Testosterone level below reference range 311037762 R89.1 patient with symptoms of low testostero ne. We will check levels and letting know the findings. Benign pro static hyperplasia with outflow obstruction 452434818 N40.1 patient with lower urinary tract symptoms. He was placed on Flomax 2 months ago and states he is voiding easily and feels like he is emptying better. His bladder scan today is only 10 cc which is improved from the previous of 67 cc. Patient still has symptom of urgency. Urinary ur gency due to benign prostatic hypertrophy [id number] 17550 N40.1 patient with urinary urgency. His force of stream and nocturia have improved with the tamsulosin . We will add Detrol for the urgency symptoms. We have discussed caffeine restrictio n as well. Erectile dysfunction 860 126415 F52.21 patient complains of difficulty maintainin g erections. We discussed treatment options in a prescripti on for Cialis 10 mg will be prescribed . Screening for malignant neoplasm of prostate 238552449 Z12.5 patient will turn 48 next week. PSA will be obtained today for prostate cancer screening. [id number] Rivera Staples Jr, MD [facility] [address] [address] 02/06/2023 09:31:59 02/06/2023 10:42:30 Testosterone level below reference range 490451323 R89.1 patient with symptoms of low testostero [...] Prostate s pecific antigen above reference range 376522021 R97.20 recent PSA was 3.6. This is elevated for his age. Prostate examinatio n today showed a 30 g prostate that was smooth and symmetric. We discussed possible causes of elevated PSA including prostate cancer, BPH and prostatiti s. We will monitor the PSA closely. Lower urin jordana tract symptoms due to benign prostatic hypertrophy [id number] 9101 N40.1 Patient with lower urinary tract [...] ID Guarantor Name 09/27/2023 1 [employer] [id number] Mason Garrison [id number] Raj Garrison Notes Date Note Type [...] energy and libido. Rivera Staples Jr, MD [address] [place] [address] Drive, [address], [address], [facility] & [place] 11/20/2022 14:29:41 01/16/2023 text/html Patient is a [...] is single. Rivera Staples Jr, MD [address], [address], [place], [address], [facility] & [place] 01/16/2023 10:28:14 02/06/2023 text/html Patient is a [...] mg as needed. Rivera Staples Jr, MD [address] [place] [address], [address], [place], [address], [place] [facility] - [place] [facility] [place] 02/06/2023 13:21:53
== END 2025-02-03 23:59 | disposition home or self-care (01) ==
LOC: RAD 14:27
PROVIDERS: PCP Family Medicine; Visit Provider Internal Medicine Cardiovascular Disease
DX: M47.812 Spondylosis without myelopathy or radiculopathy, cervical region (principal)
CPT/HCPCS: 72141

== ENCOUNTER 2025-06-13 08:07 | Day surgery (SDC) | payer OTHER, SELFPAY ==
[2025-06-13 08:18] VITALS: BP 111/71; PULSE 66; RESP 16; O2SAT 95; BMI 37.3
[2025-06-13 08:39] VITALS: BP 137/85; PULSE 64; RESP 18; O2SAT 96
[2025-06-13] MEDS: DEXAMETHASONE 10MG/ML 1ML VIAL 10 MG (08:44)
[2025-06-13 08:48] VITALS: BP 137/85; PULSE 64; RESP 18; O2SAT 96
[2025-06-13 08:52] VITALS: BP 124/75; PULSE 70; RESP 16; O2SAT 97
[2025-06-13] MEDS: IOPAMIDOL-200 (41%);10ML VIAL 10 ML IV (08:53)
--- NOTE | 2025-06-13 08:53 | P.PCN_ITS ---
Procedure Date: 06/13/25 Time: 08:40 Anesthesiologist:: Moris Licea CRNA Complications:: None Pre-procedure Diagnosis:: Degenerative disc cervical spine multilevels. Cervical radiculopathy. Disc bulge cervical spine. Post-procedure Diagnosis:: Same. Indications for Procedure:: Patient is a very pleasant 50-year-old male who comes to clinic today for cervical epidural steroid injection. Patient describes posterior cervical neck pain as well as right arm radicular symptoms. He rates his pain 7/10. Procedure Details:: Procedure:Cervical epidural steroid injection Informed consent was obtained and the risks and benefits of the procedure were explained to the patient. The patient was taken to the procedure room and noninvasive monitors placed, including noninvasive blood pressure cuff and pulse oximeter. The neck was prepped using Chloraprep as a cleansing solution. The C6- C7 interspace was viewed using fluroscopy. The skin and subcutaneous tissues were anesthetized using lidocaine 1.5% and a 25-gauge needle. After this an 18- gauge Touhy epidural needle was placed into the C6-C7 interspace under fluroscopy guidance and advanced using loss of resistance to air until the epidural space was encountered. After confirmation of needle placement in the epidural space using contrast dye, dexamethasone 10 mg ( 1 ML) was incrementally injected into the cervical epidural space.~ The patient tolerated the procedure well with no complications. The patient was observed in the Pain Clinic and then discharged home neurologically intact. Plan and Disposition:: Patient was discharged without incident.
== END 2025-06-13 08:52 | disposition home or self-care (01) ==
PROVIDERS: PCP Family Medicine; Visit Provider Nurse Anesthetist, Certified Registered
DX: M50.10 Cervical disc disorder with radiculopathy, unspecified cervical region (principal); G25.81 Restless legs syndrome; E03.9 Hypothyroidism, unspecified; F32.A Depression, unspecified
CPT/HCPCS: 62321; J1100; Q9966